=== PATIENT | female | born 1970 | race Caucasian/White ===

== ENCOUNTER 2016-06-15 21:27 | Emergency (ER) | payer OTHER ==
[2016-06-15 21:41] VITALS: TEMP 97.6
--- NOTE | 2016-06-15 22:32 | ED ---
Skin/Abscess/FB HPI - General Chief complaint: Skin/Abscess/Foreign Body Stated complaint: cysts Time Seen by Provider: 06/15/16 21:48 Source: patient, RN notes reviewed, old records reviewed Mode of arrival: ambulatory Limitations: no limitations - History of Present Illness Initial comments: Trina is a 45 year old female with chief complaint of left axilla avscess. She has had these before due to shaving with a poor razor. PAteint states she went to [facility] 2 weeks ago, and had it drained. She did remove the packing, patient states that they put her on bactrim but she didnt take the medication because she is allergic to it. Patient states she siddiqi had no oral antibiotiv and it has became worse. Denies fever and chills, chest pain, shortness of breath, nausea, vomiting. - Related Data Home Medications Medication Instructions Recorded Confirmed Albuterol Inhaler [Ventolin Hfa 2 puff INHALATION RT-Q6H PRN 06/15/16 06/15/16 Inhaler] Previous Rx's Medication Instructions Recorded Acetaminophen-Codeine 300-30mg 1 tab PO Q4H PRN #15 tablet 06/15/16 [Tylenol #3] Cephalexin [Keflex] 500 mg PO Q8HR #21 cap 06/15/16 Allergies Allergy/AdvReac Type Severity Reaction Status Date / Time erythromycin base Allergy Rash/Hives Verified 06/15/16 21:50 [Erythromycin Base] Macrolide Antibiotics Allergy Unknown Verified 06/15/16 21:50 penicillin G Allergy Unknown Verified 06/15/16 21:50 sulfamethoxazole Allergy Rash/Hives Verified 06/15/16 21:50 [From Bactrim] trimethoprim [From Bactrim] Allergy Rash/Hives Verified 06/15/16 21:50 blood thinners AdvReac Unknown Uncoded 10/03/15 22:11 TAPE AdvReac WRIPS OFF Uncoded 06/15/16 21:50 SKIN Review of Systems ROS Statement: Those systems with pertinent positive or pertinent negative responses have been documented in the HPI. ROS Other: All systems not noted in ROS Statement are negative. Past Medical History Past Medical History: Asthma, Cancer Additional Past Medical History / Comment(s): POST MENOPAUSAL CERVICAL CANCER History of Any Multi-Drug Resistant Organisms: None Reported Past Surgical History: Tubal Ligation Additional Past Surgical History / Comment(s): COLONOSCOPY EGD, CC implants Past Anesthesia/Blood Transfusion Reactions: No Reported Reaction Past Psychological History: Anxiety, Depression Smoking Status: Former smoker Past Alcohol Use History: None Reported Past Drug Use History: None Reported General Exam - General Exam Comments Initial Comments: Well appearing 45 year old male, no distress. Limitations: no limitations General appearance: alert, in no apparent distress Head exam: Present: atraumatic, normocephalic, normal inspection Eye exam: Present: normal appearance, PERRL, EOMI. Absent: scleral icterus, conjunctival injection, periorbital swelling ENT exam: Present: normal exam, mucous membranes moist Neck exam: Present: normal inspection. Absent: tenderness, meningismus, lymphadenopathy Respiratory exam: Present: normal lung sounds bilaterally. Absent: respiratory distress, wheezes, rales, rhonchi, stridor Cardiovascular Exam: Present: regular rate, normal rhythm, normal heart sounds. Absent: systolic murmur, diastolic murmur, rubs, gallop, clicks GI/Abdominal exam: Present: soft, normal bowel sounds. Absent: distended, tenderness, guarding, rebound, rigid Extremities exam: Present: normal inspection, full ROM, normal capillary refill. Absent: tenderness, pedal edema, joint swelling, calf tenderness Back exam: Present: normal inspection Neurological exam: Present: alert, oriented X3, CN II-XII intact Psychiatric exam: Present: normal affect, normal mood Skin exam: Present: warm, dry, intact, normal color, erythema (left axilla abscess.). Absent: rash Course Vital Signs 06/15/16 06/16/16 21:37 00:02 Temperature 97.6 F 97.6 F Pulse Rate 71 74 Respiratory 20 16 Rate Blood Pressure 166/81 169/89 O2 Sat by Pulse 100 98 Oximetry Procedures - Incision & Drainage Consent Obtained: verbal consent Indication: abscess Site: upper extremity (left axilla) Size (cm): 2 Anesthetic Used: benzocaine 0.25% Amount (mLs): 10 I&D Cleaning Method: Iodine Sterile Field Used?: Yes Scalpel Used: #11 I&D Drainage Obtained: Pus, Blood Culture Obtained?: Yes Patient Tolerated Procedure: well, no complications Medical Decision Making - Medical Decision Making Patient is a 45 year old with left axilla abscess. Incision and drainage preformed, culture obtained, able to remove puss. Patient started on keflex, as she has had that before for these absecess. Discussed follow up with PCP and removal of packing in 2 days. Patient agrees with treatment plan and will cmply. Disposition Clinical Impression: Abscess of left axilla Disposition: HOME SELF-CARE Condition: Good Instructions: Abscess Incision and Drainage (ED) Additional Instructions: Keep packing in until it needs to be removed in approximately 2 days. Completely entire antibiotic prescription. Follow-up with primary care provider. Return to emergency Department if any worsening signs or symptoms occur. Prescriptions: Acetaminophen-Codeine 300-30mg [Tylenol #3] 1 tab PO Q4H PRN #15 tablet PRN Reason: Pain Cephalexin [Keflex] 500 mg PO Q8HR #21 cap Referrals: Lima Oakes MD [Primary Care Provider] - 1-2 days Time of Disposition: 22:30
[2016-06-15] MEDS ORDERED: CEPHALEXIN 500MG STARTER PACK 4 CAP BTL PO STA (23:07)
[2016-06-16] MEDS ORDERED: ACET/COD 300 MG/30 MG STARTER PACK 6 TAB BTL PO STA (00:01)
[2016-06-16 00:05] VITALS: BP 169/89; PULSE 74; RESP 16
== END 2016-06-16 00:13 | disposition home or self-care (01) ==
LOC: EC 21:27
DX: L02.412 Cutaneous abscess of left axilla (principal); Z87.891 Personal history of nicotine dependence; Z85.41 Personal history of malignant neoplasm of cervix uteri; Z88.1 Allergy status to other antibiotic agents; Z88.0 Allergy status to penicillin; Z88.5 Allergy status to narcotic agent; Z88.8 Allergy status to other drugs, medicaments and biological substances; Z91.048 Other nonmedicinal substance allergy status
CPT/HCPCS: 10060; 87070; 87077; 87186; 87205; 99283

== ENCOUNTER 2016-11-23 | Emergency (ER) | payer OTHER ==
--- NOTE | 2016-11-23 20:51 | ED ---
General Adult HPI - General Chief complaint: ENT Stated complaint: Sore Throat/Fatigue Time Seen by Provider: 11/23/16 20:33 Source: patient, family Mode of arrival: ambulatory Limitations: no limitations - History of Present Illness Initial comments: 46-year-old female patient presents to emergency department today for complaints of nasal drainage and sore throat. Patient states that symptoms started 4 days ago. States she has been sleeping a little more than usual. She states that she has had a slight cough. She denies any green or area nasal discharge. She denies any sputum production. She denies any shortness of breath or wheezing. She denies any sick contacts. Denies any known fever. Patient denies any recent rash, shortness breath, chest pain, abdominal pain, nausea, vomiting, diarrhea, constipation, back pain, numbness, tingling, dizziness, weakness, hematuria, dysuria, urinary urgency, urinary frequency, headache, visual changes, or any other complaints. - Related Data Home Medications Medication Instructions Recorded Confirmed Albuterol Inhaler [Ventolin Hfa 2 puff INHALATION RT-Q6H PRN 06/15/16 11/23/16 Inhaler] Albuterol Nebulized [Ventolin 2.5 mg INHALATION RT-Q6H PRN 11/23/16 11/23/16 Nebulized] DULoxetine HCL [Cymbalta] 60 mg PO DAILY 11/23/16 11/23/16 Allergies Allergy/AdvReac Type Severity Reaction Status Date / Time erythromycin base Allergy Rash/Hives Verified 11/23/16 20:56 [Erythromycin Base] Macrolide Antibiotics Allergy Rash/Hives Verified 11/23/16 20:56 sulfamethoxazole Allergy Rash/Hives Verified 11/23/16 20:56 [From Bactrim] trimethoprim [From Bactrim] Allergy Rash/Hives Verified 11/23/16 20:56 adhesive tape AdvReac Peels Skin Verified 11/23/16 20:56 penicillin G AdvReac Yeast Verified 11/23/16 20:56 Infection blood thinners AdvReac Unknown Uncoded 11/23/16 20:14 Review of Systems ROS Statement: Those systems with pertinent positive or pertinent negative responses have been documented in the HPI. ROS Other: All systems not noted in ROS Statement are negative. Past Medical History Past Medical History: Asthma, Cancer Additional Past Medical History / Comment(s): POST MENOPAUSAL CERVICAL CANCER History of Any Multi-Drug Resistant Organisms: None Reported Past Surgical History: Tubal Ligation Additional Past Surgical History / Comment(s): COLONOSCOPY EGD, CC implants Past Anesthesia/Blood Transfusion Reactions: No Reported Reaction Past Psychological History: Anxiety, Depression Smoking Status: Former smoker Past Alcohol Use History: None Reported Past Drug Use History: None Reported General Exam Limitations: no limitations General appearance: alert, in no apparent distress, other (This is a well- developed, well-nourished adult female patient of acute distress. Vital signs upon presentation her temperature 97.3F, pulse 87, respirations 18, blood pressure 150/93, pulse ox 99% on room air.) Eye exam: Present: normal appearance, PERRL, EOMI. Absent: scleral icterus, conjunctival injection, periorbital swelling ENT exam: Present: normal exam, mucous membranes moist, TM's normal bilaterally. Absent: normal oropharynx (Oropharyngeal erythema, no swelling, no tonsillar exudate.) Neck exam: Present: normal inspection. Absent: tenderness, meningismus, lymphadenopathy Respiratory exam: Present: normal lung sounds bilaterally. Absent: respiratory distress, wheezes, rales, rhonchi, stridor Cardiovascular Exam: Present: regular rate, normal rhythm, normal heart sounds. Absent: systolic murmur, diastolic murmur, rubs, gallop, clicks GI/Abdominal exam: Present: soft, normal bowel sounds. Absent: distended, tenderness, guarding, rebound, rigid Neurological exam: Present: alert, oriented X3, CN II-XII intact Psychiatric exam: Present: normal affect, normal mood Skin exam: Present: warm, dry, intact, normal color. Absent: rash Course Vital Signs 11/23/16 20:08 Temperature 97.3 F L Pulse Rate 87 Respiratory 18 Rate Blood Pressure 150/93 O2 Sat by Pulse 99 Oximetry Medical Decision Making - Medical Decision Making 46 year-old female patient presented to emergency department today for evaluation of upper respiratory symptoms. Symptoms has been present for 4 days. She states they are mildly improved today however she has been sleeping more than usual so is concerned. Physical examination was unremarkable, lungs clear to auscultation, mildly erythematous throat, no lymphadenopathy, no tonsillar exudate. Symptoms are consistent with viral upper respiratory infection. She is instructed to use [id number] nasal decongestants and cough and cold medication. She is instructed to return here immediately should her symptoms change or worsen in any way. She is instructed to follow-up with her primary care physician for recheck in one to days. She verbalizes understanding and agrees with this plan. Disposition Clinical Impression: Upper respiratory infection Disposition: HOME SELF-CARE Condition: Good Instructions: Upper Respiratory Infection (ED) Additional Instructions: Increase fluids. Rest. Take [id number] nasal decongestants and cough medications for symptom relief. Follow-up with her primary care physician for recheck in 1-2 days. Return here immediately for any new, worsening, or concerning symptoms. Referrals: Lima Oakes MD [Primary Care Provider] - 1-2 days Time of Disposition: 20:51
== END 2016-11-23 21:01 | disposition home or self-care (01) ==
CPT/HCPCS: 99282

== ENCOUNTER → 2017-02-12 | Outpatient (CLI) | payer OTHER ==
[2017-02-12 17:41] LABS: Basophils % (A) 1 %; CH 28.1; Eosinophils # (A) 0.1 k/uL (0-0.7); Eosinophils % (A) 4 %; HDW 2.66; HGB 13.7 gm/dL (11.4-16.0); Hypochromasia Slight; Luc # (Auto) 0.07; Luc % (Auto) 2; Lymphocytes # (A) 1.1 k/uL (1.0-4.8); Lymphocytes % (A) 31 %; MCH 27.8 pg (25.0-35.0); MCHC 30.5 g/dL (31.0-37.0); MCV 91.2 fL (80.0-100.0); Mean Platelet Volume 8.1; Monocytes # (A) 0.2 k/uL (0-1.0); Monocytes % (A) 6 %; Neutrophils # (A) 1.9 k/uL (1.3-7.7); Neutrophils % (A) 55 %; RBC 4.94 m/uL (3.80-5.40); RDW 14.7 % (11.5-15.5); WBC 3.5 k/uL (3.8-10.6); WBC (Perox) 3.64
[2017-02-12 18:12] LABS: ALT 33 U/L (9-52); AST 21 U/L (14-36); Alkaline Phosphatase 76 U/L (38-126); Anion Gap 8 mmol/L; Blood Urea Nitrogen 13 mg/dL (7-17); Calcium 9.6 mg/dL (8.4-10.2); Carbon Dioxide 27 mmol/L (22-30); Chloride 105 mmol/L (98-107); Glucose 93 mg/dL (74-99); Non-African American GFR(MDRD) >60 (>60 ml/min/1.73 sqM); Potassium 4.1 mmol/L (3.5-5.1); Sodium 140 mmol/L (137-145); Total Bilirubin 0.8 mg/dL (0.2-1.3); Total Protein 6.5 g/dL (6.3-8.2)
== END | disposition home or self-care (01) ==
LOC: LABWHC1 17:04
PROVIDERS: ATTEND Nurse Practitioner Acute Care
DX: G62.9 Polyneuropathy, unspecified (principal); E55.9 Vitamin D deficiency, unspecified; R53.83 Other fatigue
CPT/HCPCS: 36415; 80053; 82306; 82607; 84207; 84439; 84443; 84481; 85025

== ENCOUNTER 2017-07-19 15:52 | Observation (INO) | payer OTHER ==
[2017-07-19] MEDS ORDERED: SODIUM CHLORIDE 0.9% 500 ML IV STA (16:07)
--- NOTE | 2017-07-19 16:14 | ED ---
General Adult HPI - General Chief complaint: Chest Pain Stated complaint: CHest Pain Time Seen by Provider: 07/19/17 16:00 Source: patient, EMS, RN notes reviewed, old records reviewed Mode of arrival: EMS Limitations: no limitations - History of Present Illness Initial comments: 46-year-old female presents for evaluation of left-sided chest pain. Patient states the pain began when she was out for a walk. She did feel lightheaded and sweaty with this episode. Pain is resolving with rest. She was given aspirin and nitroglycerin by EMS. She has no history of CAD. She has past medical history of asthma and depression. She does have a family history of coronary artery disease. The pain at the time my evaluation was significantly improved. She describes it as a squeezing tightness in her left side of her chest. No radiating symptoms. No vomiting. Mild dyspnea. No abdominal pain. No calf pain or lower extremity swelling. - Related Data Home Medications Medication Instructions Recorded Confirmed Albuterol Inhaler [Ventolin Hfa 2 puff INHALATION RT-Q6H PRN 06/15/16 11/23/16 Inhaler] Albuterol Nebulized [Ventolin 2.5 mg INHALATION RT-Q6H PRN 11/23/16 11/23/16 Nebulized] DULoxetine HCL [Cymbalta] 60 mg PO DAILY 11/23/16 11/23/16 Allergies Allergy/AdvReac Type Severity Reaction Status Date / Time erythromycin base Allergy Rash/Hives Verified 07/19/17 17:41 [Erythromycin Base] Macrolide Antibiotics Allergy Rash/Hives Verified 07/19/17 17:41 sulfamethoxazole Allergy Rash/Hives Verified 07/19/17 17:41 [From Bactrim] trimethoprim [From Bactrim] Allergy Rash/Hives Verified 07/19/17 17:41 adhesive tape AdvReac Peels Skin Verified 07/19/17 17:41 penicillin G AdvReac Yeast Verified 07/19/17 17:41 Infection blood thinners AdvReac Unknown Uncoded 11/23/16 20:14 Review of Systems ROS Statement: Those systems with pertinent positive or pertinent negative responses have been documented in the HPI. ROS Other: All systems not noted in ROS Statement are negative. Past Medical History Past Medical History: Asthma, Cancer Additional Past Medical History / Comment(s): POST MENOPAUSAL CERVICAL CANCER History of Any Multi-Drug Resistant Organisms: None Reported Past Surgical History: Tubal Ligation Additional Past Surgical History / Comment(s): COLONOSCOPY EGD, CC implants Past Anesthesia/Blood Transfusion Reactions: No Reported Reaction Past Psychological History: Anxiety, Depression Smoking Status: Former smoker Past Alcohol Use History: None Reported Past Drug Use History: None Reported General Exam Limitations: no limitations General appearance: alert, in no apparent distress Head exam: Present: atraumatic, normocephalic Eye exam: Present: normal appearance, PERRL ENT exam: Present: normal exam. Absent: normal oropharynx, mucous membranes dry Neck exam: Present: normal inspection. Absent: tenderness, meningismus Respiratory exam: Present: normal lung sounds bilaterally. Absent: respiratory distress, wheezes Cardiovascular Exam: Present: regular rate, normal rhythm Extremities exam: Present: normal inspection, full ROM, normal capillary refill. Absent: pedal edema, calf tenderness Back exam: Present: normal inspection Neurological exam: Present: alert, oriented X3, CN II-XII intact. Absent: motor sensory deficit Psychiatric exam: Present: normal affect, normal mood Skin exam: Present: warm, dry, intact. Absent: cyanosis, diaphoretic Course Vital Signs 07/19/17 07/19/17 07/19/17 16:00 16:18 16:44 Temperature 98.4 F Pulse Rate 63 69 Pulse Rate [ 65 Sitting Apical] Respiratory 19 19 Rate Blood Pressure 190/76 133/65 O2 Sat by Pulse 98 98 Oximetry EKG Findings - EKG Comments: EKG Findings:: EKG sinus bradycardia, left axis deviation, rate of 59, GA interval 140, QRS duration 86, QTC [address] segment elevation or depression Medical Decision Making - Medical Decision Making 46-year-old female presenting with chief complaint of squeezing left-sided chest tightness. EKG does not show any definitive signs of ischemia. Workup reveals mild leukopenia at 2.2, hemoglobin stable at 13.8. D-dimer is negative. Electrolytes normal limits. Initial troponin is negative. Chest x- ray negative for acute process. Patient will be placed in observation for repeat cardiac enzymes as her symptoms began just prior to arrival. Cardiology placed on consult. Case discussed with Dr. Harden who will accept admission - Lab Data Result diagrams: 07/19/17 14:11 07/19/17 14:11 Lab Results 07/19/17 07/19/17 07/19/17 Range/Units 14:11 14:11 14:11 WBC 2.9 L (3.8-10.6) k/uL RBC 4.85 (3.80-5.40) m/uL Hgb 13.8 (11.4-16.0) gm/dL Hct 41.8 (34.0-46.0) % MCV 86.3 (80.0-100.0) fL MCH 28.4 (25.0-35.0) pg MCHC 32.9 (31.0-37.0) g/dL RDW 13.7 (11.5-15.5) % Plt Count 112 L (150-450) k/uL Neutrophils % 55 % Lymphocytes % 34 % Monocytes % 6 % Eosinophils % 3 % Basophils % 1 % Neutrophils # 1.6 (1.3-7.7) k/uL Lymphocytes # 1.0 (1.0-4.8) k/uL Monocytes # 0.2 (0-1.0) k/uL Eosinophils # 0.1 (0-0.7) k/uL Basophils # 0.0 (0-0.2) k/uL PT 10.0 (9.0-12.0) sec INR 1.0 (<1.2) APTT 22.5 (22.0-30.0) sec D-Dimer 0.46 (<0.60) mg/L FEU Sodium (137-145) mmol/L Potassium (3.5-5.1) mmol/L Chloride (98-107) mmol/L Carbon Dioxide (22-30) mmol/L Anion Gap mmol/L BUN (7-17) mg/dL Creatinine (0.52-1.04) mg/dL Est GFR (CKD-EPI)AfAm (>60 ml/min/1.73 sqM) Est GFR (CKD-EPI)NonAf (>60 ml/min/1.73 sqM) Glucose (74-99) mg/dL Calcium (8.4-10.2) mg/dL Magnesium (1.6-2.3) mg/dL Total Bilirubin (0.2-1.3) mg/dL AST (14-36) U/L ALT (9-52) U/L Alkaline Phosphatase (38-126) U/L Total Creatine Kinase 44 (30-135) U/L CK-MB (CK-2) <0.2 (0.0-2.4) ng/mL CK-MB (CK-2) Rel Index Troponin I <0.012 (0.000-0.034) ng/mL NT-Pro-B Natriuret Pep pg/mL Total Protein (6.3-8.2) g/dL Albumin (3.5-5.0) g/dL Lipase (23-300) U/L 07/19/17 07/19/17 Range/Units 14:11 14:11 WBC (3.8-10.6) k/uL RBC (3.80-5.40) m/uL Hgb (11.4-16.0) gm/dL Hct (34.0-46.0) % MCV (80.0-100.0) fL MCH (25.0-35.0) pg MCHC (31.0-37.0) g/dL RDW (11.5-15.5) % Plt Count (150-450) k/uL Neutrophils % % Lymphocytes % % Monocytes % % Eosinophils % % Basophils % % Neutrophils # (1.3-7.7) k/uL Lymphocytes # (1.0-4.8) k/uL Monocytes # (0-1.0) k/uL Eosinophils # (0-0.7) k/uL Basophils # (0-0.2) k/uL PT (9.0-12.0) sec INR (<1.2) APTT (22.0-30.0) sec D-Dimer (<0.60) mg/L FEU Sodium 145 (137-145) mmol/L Potassium 4.1 (3.5-5.1) mmol/L Chloride 110 H (98-107) mmol/L Carbon Dioxide 22 (22-30) mmol/L Anion Gap 13 mmol/L BUN 13 (7-17) mg/dL Creatinine 0.80 (0.52-1.04) mg/dL Est GFR (CKD-EPI)AfAm >90 (>60 ml/min/1.73 sqM) Est GFR (CKD-EPI)NonAf 88 (>60 ml/min/1.73 sqM) Glucose 84 (74-99) mg/dL Calcium 9.6 (8.4-10.2) mg/dL Magnesium 2.0 (1.6-2.3) mg/dL Total Bilirubin 0.7 (0.2-1.3) mg/dL AST 22 (14-36) U/L ALT 27 (9-52) U/L Alkaline Phosphatase 67 (38-126) U/L Total Creatine Kinase (30-135) U/L CK-MB (CK-2) (0.0-2.4) ng/mL CK-MB (CK-2) Rel Index Troponin I (0.000-0.034) ng/mL NT-Pro-B Natriuret Pep 125 pg/mL Total Protein 6.6 (6.3-8.2) g/dL Albumin 4.0 (3.5-5.0) g/dL Lipase 66 (23-300) U/L Disposition Clinical Impression: Chest pain Disposition: ADMITTED IP TO THIS [facility] Condition: Stable Referrals: Lima Oakes MD [Primary Care Provider] - 1-2 days Decision to Admit Reason: Admit from EC Decision Date: 07/19/17 Decision Time: 17:45
[2017-07-19 16:25] LABS: Basophils % (A) 1 %; Eosinophils # (A) 0.1 k/uL (0-0.7); Eosinophils % (A) 3 %; HCT 41.8 % (34.0-46.0); HGB 13.8 gm/dL (11.4-16.0); Lymphocytes % (A) 34 %; MCH 28.4 pg (25.0-35.0); MCHC 32.9 g/dL (31.0-37.0); MCV 86.3 fL (80.0-100.0); Mean Platelet Volume 8.1; Monocytes # (A) 0.2 k/uL (0-1.0); Monocytes % (A) 6 %; Neutrophils # (A) 1.6 k/uL (1.3-7.7); Neutrophils % (A) 55 %; Platelet Count 112 k/uL (150-450); RBC 4.85 m/uL (3.80-5.40); RDW 13.7 % (11.5-15.5); WBC 2.9 k/uL (3.8-10.6)
[2017-07-19 16:34] LABS: ALT 27 U/L (9-52); AST 22 U/L (14-36); Alkaline Phosphatase 67 U/L (38-126); Anion Gap 13 mmol/L; Blood Urea Nitrogen 13 mg/dL (7-17); Calcium 9.6 mg/dL (8.4-10.2); Carbon Dioxide 22 mmol/L (22-30); Chloride 110 mmol/L (98-107); Glucose 84 mg/dL (74-99); Lipase 66 U/L (23-300); Potassium 4.1 mmol/L (3.5-5.1); Sodium 145 mmol/L (137-145); Total Bilirubin 0.7 mg/dL (0.2-1.3); Total Protein 6.6 g/dL (6.3-8.2)
[2017-07-19 16:42] LABS: Creatine Kinase 44 U/L (30-135)
--- NOTE | 2017-07-19 16:45 | XR ---
EXAMINATION TYPE: XR chest 2V DATE OF EXAM: 07/19/2017 COMPARISON: 08/19/2015 INDICATION: Chest pain TECHNIQUE: Frontal and lateral views of the chest are obtained. FINDINGS: The heart size is normal. The pulmonary vasculature is normal. The lungs are clear. IMPRESSION: 1. No acute pulmonary process.
[2017-07-19 16:51] LABS: D-Dimer 0.46 mg/L FEU (<0.60); Partial Thromboplastin Time 22.5 sec (22.0-30.0)
[2017-07-19 16:55] LABS: Creatine Kinase MB <0.2 ng/mL (0.0-2.4); Troponin I <0.012 ng/mL (0.000-0.034)
[2017-07-19] MEDS ORDERED: NALOXONE 0.4 MG/ML 1 ML VIAL IV PRN (17:41)
[2017-07-19] MEDS ORDERED: NITROGLYCERIN SL TABS 0.4 MG TAB SUBLINGUAL PRN (17:43)
[2017-07-19] MEDS ORDERED: ALPRAZolam 0.25 MG TAB PO PRN (18:22)
[2017-07-19] MEDS ORDERED: TEMAZEPAM 15 MG CAP PO PRN (18:22)
[2017-07-19] MEDS ORDERED: ACETAMINOPHEN TAB 500 MG TAB PO PRN (18:22)
[2017-07-19 20:27] VITALS: BMI 49.1
[2017-07-19 20:44] LABS: Creatine Kinase MB 0.2 ng/mL (0.0-2.4)
[2017-07-19] MEDS ORDERED: tiZANidine 4 MG TAB PO SCH (21:00)
--- NOTE | 2017-07-19 22:26 | HP ---
HISTORY AND PHYSICAL DATE OF SERVICE: 07/19/2017 CHIEF COMPLAINT: Chest pain. HISTORY OF PRESENT ILLNESS: This 46-year-old woman with a past medical history of multiple medical problems, asthma, history of cervical cancer, history of tubal ligation and depression being followed by Dr. Lima Oakes, complains of chest pain. The pain is mostly to the left side and mid part of the chest, increasing in character. The pain began when the patient was walking and the nitroglycerin. The patient was admitted for further evaluation and treatment. There is no history of fever, rigors. No headache, loss of consciousness, seizures. PAST MEDICAL HISTORY: History of anxiety, depression, asthma, history of cervical cancer. MEDICATIONS: Prior to admission home medications are Zanaflex 4 mg p.o. b.i.d. and Cymbalta 60 mg p.o. daily. ALLERGIES: ERYTHROMYCIN, SULFAMETHOXAZOLE, ADHESIVE TAPE AND BLOOD THINNERS. FAMILY HISTORY: No history of heart disease or strokes in family. SOCIAL HISTORY: History of smoking. No history of current smoking or alcohol intake. REVIEW OF SYSTEMS: ENT: No diminished hearing or vision. CARDIOVASCULAR: As mentioned earlier. GI: No nausea. : No dysuria. NERVOUS SYSTEM: No numbness or weakness. ALLERGY/IMMUNOLOGY: As mentioned earlier. HEMATOLOGY/ONCOLOGY: No history of anemia. ENDOCRINE: No history of diabetes or hyperthyroidism. CONSTITUTIONAL: As mentioned earlier. PHYSICAL EXAMINATION: Alert and oriented x3. Pulse is 69, blood pressure 130/60 respirations 19, temperature 98.4, pulse ox 98% on 2 L HEENT is conjunctivae normal. Oral mucosa moist. NECK: No jugular venous distention. No lymph nodes palpable. CARDIOVASCULAR: S1, S2. RESPIRATORY: Diminished breath sounds at the bases. No rhonchi, no crackles. ABDOMEN: Soft, nontender. No mass palpable. LEGS: No edema, no swelling. NERVOUS SYSTEM: Higher functions as mentioned earlier. Moves all four limbs. LYMPHATICS: No lymph in the neck or axilla. SKIN: No ulcer, rash or bleeding. LABS: WBC 2.9, hemoglobin 13.8, platelets 130. ASSESSMENT: 1. Chest pain, possible unstable angina. 2. Mild leukopenia. 3. Mild thrombocytopenia. 4. History of asthma. 5. History of cervical cancer. 6. Anxiety and depression. RECOMMENDATIONS AND DISCUSSION: This is a 46-year-old woman who presented with multiple complex medical issues. We will monitor the patient closely, continue the current management, continue symptomatic treatment. Otherwise, at this time I recommend protocol and rule out myocardial infarction, cardiology consultation and resume home medications. Prognosis guarded because of multiple complex medical issues. Further recommendations to follow. MMLEBRONL / PAPIN: [id number] / MTDD
[2017-07-20 02:25] LABS: Creatine Kinase 51 U/L (30-135)
[2017-07-20 02:35] LABS: Creatine Kinase MB 0.3 ng/mL (0.0-2.4)
[2017-07-20 03:50] LABS: Basophils % (A) 1 %; Eosinophils # (A) 0.2 k/uL (0-0.7); Eosinophils % (A) 5 %; HCT 39.3 % (34.0-46.0); HGB 12.9 gm/dL (11.4-16.0); Lymphocytes # (A) 1.3 k/uL (1.0-4.8); Lymphocytes % (A) 37 %; MCH 28.7 pg (25.0-35.0); MCHC 32.9 g/dL (31.0-37.0); MCV 87.3 fL (80.0-100.0); Mean Platelet Volume 8.3; Monocytes # (A) 0.2 k/uL (0-1.0); Monocytes % (A) 5 %; Neutrophils # (A) 1.8 k/uL (1.3-7.7); Neutrophils % (A) 51 %; Platelet Count 110 k/uL (150-450); RDW 13.7 % (11.5-15.5); WBC 3.5 k/uL (3.8-10.6)
[2017-07-20 04:11] LABS: Anion Gap 10 mmol/L; Blood Urea Nitrogen 13 mg/dL (7-17); Calcium 9.2 mg/dL (8.4-10.2); Carbon Dioxide 23 mmol/L (22-30); Chloride 110 mmol/L (98-107); Glucose 87 mg/dL (74-99); Potassium 4.2 mmol/L (3.5-5.1); Sodium 143 mmol/L (137-145)
[2017-07-20 04:22] LABS: Troponin I <0.012 ng/mL (0.000-0.034)
[2017-07-20 08:31] VITALS: RESP 16
[2017-07-20] MEDS ORDERED: DULoxetine HCL 60 MG CAPSULE.DR PO SCH ×2 (09:00→21:00)
[2017-07-20] MEDS ORDERED: ASPIRIN 81 MG PO SCH ×2 (09:15→11:15)
[2017-07-20] MEDS ORDERED: METOPROLOL TARTRATE 12.5 MG TAB PO SCH ×2 (09:15→11:15)
[2017-07-20 11:19] VITALS: BP 138/66; PULSE 57; TEMP 97.9
[2017-07-20] MEDS ORDERED: tiZANidine 4 MG TAB PO SCH (21:00)
--- NOTE | 2017-07-20 22:06 | CONS ---
CONSULTATION Sonia Kinney is a 46-year-old woman who has been admitted to the hospital when she presented with a left-sided chest pain. Pain began when she went for a walk. She felt lightheaded and had some sweaty feeling. She was given aspirin and nitroglycerin by EMS without any relief. She has past medical history in the form of bronchial asthma and some depression. This pain occurred with her walk, but subsequently she has no further pain. She is resting comfortably without symptoms. She is otherwise a reasonably active person. PAST MEDICAL HISTORY: Remarkable for some bronchial asthma, anxiety, some depression, and also history of cervical cancer for which she received chemotherapy with a port. MEDICATIONS: At home include Cymbalta. ALLERGIES: SULFA and ERYTHROMYCIN. EXAMINATION: Blood pressure is 130/70, pulse rate is 70 per minute, regular. HEENT: Unremarkable. Fundus was not examined by me. NECK: Supple. There is no JVD. I do not hear a carotid bruit. Heart exam reveals S1, S2 heard normally without a rub, murmur or gallop. Lungs are clear. Abdomen is soft, nontender. Lower extremities reveal normal pulses. No edema. Central nervous system is normal. EKG revealed sinus mechanism, leftward axis, no acute changes. LABORATORY DATA: Revealed that her troponins are normal and all electrolytes are normal. BNP is normal. Chest x-ray revealed no significant abnormalities. IMPRESSION: 1. Atypical chest pain. 2. History of cervical cancer. 3. Family history of coronary artery disease. RECOMMENDATION: I am recommending that we will start her on aspirin 81 mg daily and Lopressor 12.5 mg b.i.d. We will increase activity and if she has no further symptoms she can be discharged and I will perform stress testing as an outpatient. I discussed my thoughts in detail with the patient. Thank you very much for the consult. MMODL / IJN: [id number] /
--- NOTE | 2017-07-21 06:43 | DS ---
DISCHARGE SUMMARY DATE OF SERVICE: 07/20/2017 FINAL DIAGNOSES: 1. Chest pain, myocardial infarction ruled out. 2. Mild leukopenia. 3. Mild thrombocytopenia. 4. History of asthma. 5. History of cervical cancer. 6. Anxiety and depression. DISCHARGE DISPOSITION: The patient will be discharged in stable condition with guarded prognosis. Cardiology cleared the patient. HISTORY OF PRESENT ILLNESS: This 46-year-old woman with a past medical history of multiple medical problems admitted with chest pain. Myocardial infarction ruled out. Cardiology saw the patient. Recommend outpatient followup. The patient follows with Dr. Lima Oakes in the outpatient setting. On exam, vital signs are stable. CARDIOVASCULAR: S1 and S2 muffled. ABDOMEN: Soft. NERVOUS SYSTEM: No focal deficits. DISCHARGE ADVICE: 1. Diet is cardiac. 2. Activity limited until followup. 3. Follow up with Dr. Clarence Samuel as advised. 4. Follow up with Dr. Lima Oakes as advised. MEDICATIONS: 1. Aspirin 81 mg p.o. daily. 2. Cymbalta 60 mg at bedtime. 3. Lopressor 12.5 mg b.i.d. 4. Zanaflex 4 mg at bedtime. Once again, the patient will be discharged in a stable condition with a guarded prognosis. MMODL / IJN: [id number] /
== END 2017-07-20 12:47 | disposition home or self-care (01) ==
LOC: EC 15:52 → 6SEL 17:42 → 3OBS 07-20 10:39
PROVIDERS: ADMIT Hospitalist; ATTEND Hospitalist
DX: R07.89 Other chest pain (principal); R42 Dizziness and giddiness; R61 Generalized hyperhidrosis; D72.819 Decreased white blood cell count, unspecified; D69.6 Thrombocytopenia, unspecified; J45.909 Unspecified asthma, uncomplicated; F32.9 Major depressive disorder, single episode, unspecified; F41.9 Anxiety disorder, unspecified; Z85.41 Personal history of malignant neoplasm of cervix uteri; Z79.899 Other long term (current) drug therapy; Z87.891 Personal history of nicotine dependence; Z92.21 Personal history of antineoplastic chemotherapy; Z82.49 Family history of ischemic heart disease and other diseases of the circulatory system; Z88.2 Allergy status to sulfonamides; Z88.0 Allergy status to penicillin; Z88.1 Allergy status to other antibiotic agents; Z91.048 Other nonmedicinal substance allergy status
CPT/HCPCS: 99285; 36415; 93005; 85379; 83880; 80053; 80048; 82550 ×2; 82553 ×2; 83690; 83735; 84484 ×2; 85025 ×2; 85610; 85730; 71046; G0378 ×2

== ENCOUNTER 2017-08-31 03:54 | Emergency (ER) | payer OTHER ==
[2017-08-31] MEDS ORDERED: SODIUM CHLORIDE 0.9% 1,000 ML IV STA (04:05)
[2017-08-31] MEDS ORDERED: SODIUM CHLORIDE 0.9% 500 ML IV STA (04:05)
[2017-08-31 04:23] LABS: Basophils % (A) 0 %; Eosinophils # (A) 0.2 k/uL (0-0.7); Eosinophils % (A) 5 %; HCT 44.6 % (34.0-46.0); HGB 14.3 gm/dL (11.4-16.0); Hypochromasia Slight; Lymphocytes # (A) 1.8 k/uL (1.0-4.8); Lymphocytes % (A) 36 %; MCH 28.2 pg (25.0-35.0); MCHC 32.1 g/dL (31.0-37.0); Mean Platelet Volume 8.1; Monocytes # (A) 0.3 k/uL (0-1.0); Monocytes % (A) 5 %; Neutrophils # (A) 2.6 k/uL (1.3-7.7); Neutrophils % (A) 52 %; Platelet Count 117 k/uL (150-450); RBC 5.06 m/uL (3.80-5.40); RDW 13.6 % (11.5-15.5)
[2017-08-31 04:33] LABS: Albumin 4.4 g/dL (3.5-5.0); Anion Gap 11 mmol/L; Calcium 9.6 mg/dL (8.4-10.2); Carbon Dioxide 25 mmol/L (22-30); Chloride 108 mmol/L (98-107); Glucose 85 mg/dL (74-99); Lipase 99 U/L (23-300); Sodium 144 mmol/L (137-145); Total Bilirubin 0.6 mg/dL (0.2-1.3); Total Protein 7.1 g/dL (6.3-8.2)
[2017-08-31 04:34] LABS: Blood Urea Nitrogen 13 mg/dL (7-17)
[2017-08-31 04:35] LABS: ALT 27 U/L (9-52); AST 28 U/L (14-36); Alkaline Phosphatase 79 U/L (38-126); Magnesium 2.2 mg/dL (1.6-2.3)
[2017-08-31 04:43] LABS: Creatine Kinase 55 U/L (30-135); D-Dimer 0.57 mg/L FEU (<0.60); Prothrombin Time 9.6 sec (9.0-12.0)
[2017-08-31 04:56] LABS: Creatine Kinase MB 0.4 ng/mL (0.0-2.4); Troponin I <0.012 ng/mL (0.000-0.034)
--- NOTE | 2017-08-31 05:24 | ED ---
General Adult HPI - General Chief complaint: Chest Pain Stated complaint: Chest Pain Time Seen by Provider: 08/31/17 04:05 Source: patient, RN notes reviewed, old records reviewed Mode of arrival: wheelchair Limitations: no limitations - History of Present Illness Initial comments: This is a 46-year-old female the ER for evaluation. Patient resents today for evaluation regarding chest pain. Anterior chest pain. Patient does admit to some alcohol use yesterday, being out of the sun. Significant sunburned anterior chest. Patient denies shortness of breath but does states she felt a little bit weak. Symptoms continued to wake her up from sleep tonight. She denies any recent travel history fever cough or congestion - Related Data Home Medications Medication Instructions Recorded Confirmed DULoxetine HCL [Cymbalta] 60 mg PO HS 11/23/16 07/20/17 tiZANidine [Zanaflex] 4 mg PO HS 07/19/17 07/20/17 Previous Rx's Medication Instructions Recorded Aspirin 81 mg PO DAILY #30 chew 07/20/17 Metoprolol Tartrate [Lopressor] 12.5 mg PO BID #60 dose 07/20/17 Allergies Allergy/AdvReac Type Severity Reaction Status Date / Time erythromycin base Allergy Rash/Hives Verified 08/31/17 04:02 [Erythromycin Base] Macrolide Antibiotics Allergy Rash/Hives Verified 08/31/17 04:02 sulfamethoxazole Allergy Rash/Hives Verified 08/31/17 04:02 [From Bactrim] trimethoprim [From Bactrim] Allergy Rash/Hives Verified 08/31/17 04:02 adhesive tape AdvReac Peels Skin Verified 08/31/17 04:02 penicillin G AdvReac Yeast Verified 08/31/17 04:02 Infection blood thinners AdvReac Unknown Uncoded 08/31/17 04:02 Review of Systems ROS Statement: Those systems with pertinent positive or pertinent negative responses have been documented in the HPI. ROS Other: All systems not noted in ROS Statement are negative. Past Medical History Past Medical History: Asthma, Cancer, Chest Pain / Angina Additional Past Medical History / Comment(s): POST MENOPAUSAL CERVICAL CANCER, blood transfusions, low platelets patient says related to bleeding from cervical cancer History of Any Multi-Drug Resistant Organisms: None Reported Past Surgical History: Tubal Ligation Additional Past Surgical History / Comment(s): COLONOSCOPY EGD, CC implants Past Anesthesia/Blood Transfusion Reactions: No Reported Reaction Past Psychological History: Depression Smoking Status: Former smoker Past Alcohol Use History: None Reported Past Drug Use History: None Reported - Past Family History Mother Family Medical History: Coronary Artery Disease (CAD), Hypertension, Vascular Disorder Additional Family Medical History / Comment(s): patient says her mother sees a pulmonary doctor, general laborer, and leg doctor General Exam - General Exam Comments Initial Comments: Anterior chest wall erythema secondary sunburn Limitations: no limitations General appearance: alert, in no apparent distress Head exam: Present: atraumatic, normocephalic, normal inspection Eye exam: Present: normal appearance, PERRL, EOMI. Absent: scleral icterus, conjunctival injection, periorbital swelling ENT exam: Present: normal exam, mucous membranes moist Neck exam: Present: normal inspection. Absent: tenderness, meningismus, lymphadenopathy Respiratory exam: Present: normal lung sounds bilaterally. Absent: respiratory distress, wheezes, rales, rhonchi, stridor Cardiovascular Exam: Present: regular rate, normal rhythm, normal heart sounds. Absent: systolic murmur, diastolic murmur, rubs, gallop, clicks GI/Abdominal exam: Present: soft, normal bowel sounds. Absent: distended, tenderness, guarding, rebound, rigid Extremities exam: Present: normal inspection, full ROM, normal capillary refill. Absent: tenderness, pedal edema, joint swelling, calf tenderness Back exam: Present: normal inspection Neurological exam: Present: alert, oriented X3, CN II-XII intact Psychiatric exam: Present: normal affect, normal mood Skin exam: Present: warm, dry, intact, normal color. Absent: rash Course Vital Signs 08/31/17 08/31/17 03:58 05:26 Temperature 97.6 F Pulse Rate 73 65 Respiratory 21 18 Rate Blood Pressure 154/98 124/66 O2 Sat by Pulse 99 100 Oximetry EKG Findings - EKG Comments: EKG Findings:: Sinus bradycardia rate of 56, [place] 136, QRS 86, QTc 380 Medical Decision Making - Medical Decision Making 46 female the ER chest pain. Patient has some anterior chest pain, she does admit to 8 being in the bar and then being outside for a couple hours today does have significant sunburned anterior chest. Patient has mild history of heart disease EKG troponin negative. Patient can be discharged home - Lab Data Result diagrams: 08/31/17 04:15 08/31/17 04:15 Lab Results 08/31/17 08/31/17 08/31/17 Range/Units 04:15 04:15 04:15 WBC 5.0 (3.8-10.6) k/uL RBC 5.06 (3.80-5.40) m/uL Hgb 14.3 (11.4-16.0) gm/dL Hct 44.6 (34.0-46.0) % MCV 88.0 (80.0-100.0) fL MCH 28.2 (25.0-35.0) pg MCHC 32.1 (31.0-37.0) g/dL RDW 13.6 (11.5-15.5) % Plt Count 117 L (150-450) k/uL Neutrophils % 52 % Lymphocytes % 36 % Monocytes % 5 % Eosinophils % 5 % Basophils % 0 % Neutrophils # 2.6 (1.3-7.7) k/uL Lymphocytes # 1.8 (1.0-4.8) k/uL Monocytes # 0.3 (0-1.0) k/uL Eosinophils # 0.2 (0-0.7) k/uL Basophils # 0.0 (0-0.2) k/uL Hypochromasia Slight PT (9.0-12.0) sec INR (<1.2) APTT (22.0-30.0) sec D-Dimer (<0.60) mg/L FEU Sodium 144 (137-145) mmol/L Potassium 5.0 (3.5-5.1) mmol/L Chloride 108 H (98-107) mmol/L Carbon Dioxide 25 (22-30) mmol/L Anion Gap 11 mmol/L BUN 13 (7-17) mg/dL Creatinine 0.81 (0.52-1.04) mg/dL Est GFR (CKD-EPI)AfAm >90 (>60 ml/min/1.73 sqM) Est GFR (CKD-EPI)NonAf 87 (>60 ml/min/1.73 sqM) Glucose 85 (74-99) mg/dL Calcium 9.6 (8.4-10.2) mg/dL Magnesium 2.2 (1.6-2.3) mg/dL Total Bilirubin 0.6 (0.2-1.3) mg/dL AST 28 (14-36) U/L ALT 27 (9-52) U/L Alkaline Phosphatase 79 (38-126) U/L Total Creatine Kinase 55 (30-135) U/L CK-MB (CK-2) 0.4 (0.0-2.4) ng/mL CK-MB (CK-2) Rel Index 0.7 Troponin I <0.012 (0.000-0.034) ng/mL NT-Pro-B Natriuret Pep pg/mL Total Protein 7.1 (6.3-8.2) g/dL Albumin 4.4 (3.5-5.0) g/dL Lipase 99 (23-300) U/L 08/31/17 08/31/17 Range/Units 04:15 04:15 WBC (3.8-10.6) k/uL RBC (3.80-5.40) m/uL Hgb (11.4-16.0) gm/dL Hct (34.0-46.0) % MCV (80.0-100.0) fL MCH (25.0-35.0) pg MCHC (31.0-37.0) g/dL RDW (11.5-15.5) % Plt Count (150-450) k/uL Neutrophils % % Lymphocytes % % Monocytes % % Eosinophils % % Basophils % % Neutrophils # (1.3-7.7) k/uL Lymphocytes # (1.0-4.8) k/uL Monocytes # (0-1.0) k/uL Eosinophils # (0-0.7) k/uL Basophils # (0-0.2) k/uL Hypochromasia PT 9.6 (9.0-12.0) sec INR 1.0 (<1.2) APTT 22.0 (22.0-30.0) sec D-Dimer 0.57 (<0.60) mg/L FEU Sodium (137-145) mmol/L Potassium (3.5-5.1) mmol/L Chloride (98-107) mmol/L Carbon Dioxide (22-30) mmol/L Anion Gap mmol/L BUN (7-17) mg/dL Creatinine (0.52-1.04) mg/dL Est GFR (CKD-EPI)AfAm (>60 ml/min/1.73 sqM) Est GFR (CKD-EPI)NonAf (>60 ml/min/1.73 sqM) Glucose (74-99) mg/dL Calcium (8.4-10.2) mg/dL Magnesium (1.6-2.3) mg/dL Total Bilirubin (0.2-1.3) mg/dL AST (14-36) U/L ALT (9-52) U/L Alkaline Phosphatase (38-126) U/L Total Creatine Kinase (30-135) U/L CK-MB (CK-2) (0.0-2.4) ng/mL CK-MB (CK-2) Rel Index Troponin I (0.000-0.034) ng/mL NT-Pro-B Natriuret Pep 85 pg/mL Total Protein (6.3-8.2) g/dL Albumin (3.5-5.0) g/dL Lipase (23-300) U/L Disposition Clinical Impression: Chest pain Disposition: HOME SELF-CARE Condition: Good Instructions: Chest Pain (ED) Is patient prescribed a controlled substance at d/c from ED?: No Referrals: Lima Oakes MD [Primary Care Provider] - 1-2 days
[2017-08-31 05:27] VITALS: BP 124/66; PULSE 65; RESP 18
[2017-08-31 06:12] VITALS: TEMP 97.8
== END 2017-08-31 06:12 | disposition home or self-care (01) ==
LOC: EC 03:54
DX: R07.89 Other chest pain (principal); F32.9 Major depressive disorder, single episode, unspecified; Z85.41 Personal history of malignant neoplasm of cervix uteri; Z87.891 Personal history of nicotine dependence; Z79.899 Other long term (current) drug therapy; Z88.0 Allergy status to penicillin; Z88.1 Allergy status to other antibiotic agents; Z88.2 Allergy status to sulfonamides; Z88.8 Allergy status to other drugs, medicaments and biological substances; Z91.048 Other nonmedicinal substance allergy status; Z86.79 Personal history of other diseases of the circulatory system
CPT/HCPCS: 36415; 80053; 82550; 82553; 83690; 83735; 83880; 84484; 85025; 85379; 85610; 85730; 93005; 96360; 96361; 99285

== ENCOUNTER 2017-10-02 22:52 | Emergency (ER) | payer OTHER ==
--- NOTE | 2017-10-03 00:02 | ED ---
General Adult HPI - General Chief complaint: Skin/Abscess/Foreign Body Stated complaint: Eye swelling Time Seen by Provider: 10/02/17 23:51 Source: patient Mode of arrival: ambulatory Limitations: no limitations - History of Present Illness Initial comments: Sonia is a 47-year-old female who presents the ED today for evaluation of left eyelid redness and swelling. Patient reports that she was in her usual state of health yesterday evening, she states that when she woke this point she noted there were small white spiders in her bed including one on her face. She also noted that throughout the day when she moved some stuff around her room there are more white spiders. Patient states that this afternoon she noticed that her left eyelid appeared red and swollen, she was concerned she may been bitten by a spider so she came to the ER for evaluation. The patient noted redness and swelling at the lateral base of the left eyelid at the lash line. There was mild tenderness to palpation, no exudate. No blurred vision, no pain with eye movement. No headache. No associated fevers, chills, nausea or vomiting. Patient has been applying cold compresses to the eye with improvement in the discomfort. - Related Data Home Medications Medication Instructions Recorded Confirmed DULoxetine HCL [Cymbalta] 60 mg PO HS 11/23/16 07/20/17 tiZANidine [Zanaflex] 4 mg PO HS 07/19/17 07/20/17 Previous Rx's Medication Instructions Recorded Aspirin 81 mg PO DAILY #30 chew 07/20/17 Metoprolol Tartrate [Lopressor] 12.5 mg PO BID #60 dose 07/20/17 Allergies Allergy/AdvReac Type Severity Reaction Status Date / Time erythromycin base Allergy Rash/Hives Verified 10/02/17 23:18 [Erythromycin Base] Macrolide Antibiotics Allergy Rash/Hives Verified 10/02/17 23:18 sulfamethoxazole Allergy Rash/Hives Verified 10/02/17 23:18 [From Bactrim] trimethoprim [From Bactrim] Allergy Rash/Hives Verified 10/02/17 23:18 adhesive tape AdvReac Peels Skin Verified 10/02/17 23:18 penicillin G AdvReac Yeast Verified 10/02/17 23:18 Infection blood thinners AdvReac Unknown Uncoded 10/02/17 23:18 Review of Systems ROS Statement: Those systems with pertinent positive or pertinent negative responses have been documented in the HPI. ROS Other: All systems not noted in ROS Statement are negative. Past Medical History Past Medical History: Asthma, Cancer, Chest Pain / Angina, Hypertension Additional Past Medical History / Comment(s): POST MENOPAUSAL CERVICAL CANCER, blood transfusions, low platelets patient says related to bleeding from cervical cancer History of Any Multi-Drug Resistant Organisms: None Reported Past Surgical History: Tubal Ligation Additional Past Surgical History / Comment(s): COLONOSCOPY EGD, CC implants Past Anesthesia/Blood Transfusion Reactions: No Reported Reaction Past Psychological History: Depression Smoking Status: Former smoker Past Alcohol Use History: None Reported Past Drug Use History: None Reported - Past Family History Mother Family Medical History: Coronary Artery Disease (CAD), Hypertension, Vascular Disorder Additional Family Medical History / Comment(s): patient says her mother sees a pulmonary doctor, commercial crabber, and leg doctor General Exam Limitations: no limitations General appearance: alert, in no apparent distress Head exam: Present: atraumatic, normocephalic Eye exam: Present: normal appearance, PERRL, EOMI, periorbital tenderness. Absent: scleral icterus, conjunctival injection, nystagmus Expanded Eyelids: Stye: Left, Swelling: Left Pupils: Regular, Round: Bilateral, Reactive: Bilateral, Mydriasis: Bilateral, Miosissis: Bilateral Sclera/Conjunctival: Normal Inspection: Bilateral ENT exam: Present: normal exam, mucous membranes moist, TM's normal bilaterally , normal external ear exam Neck exam: Present: normal inspection Respiratory exam: Present: normal lung sounds bilaterally Cardiovascular Exam: Present: regular rate, normal rhythm GI/Abdominal exam: Present: soft. Absent: distended Rectal exam: Present: deferred Extremities exam: Present: full ROM Neurological exam: Present: alert, oriented X3 Psychiatric exam: Present: normal affect, normal mood Skin exam: Present: warm, dry, intact Course Vital Signs 10/02/17 10/03/17 23:16 01:46 Temperature 98.1 F 97.8 F Pulse Rate 88 60 Respiratory 18 16 Rate Blood Pressure 156/104 142/96 O2 Sat by Pulse 98 100 Oximetry Medical Decision Making - Medical Decision Making Patient was seen and evaluated, history was obtained from the patient Patient with left eyelid redness and swelling, minimal tenderness The eye was stained and evaluated under a black light no evidence of uptake to the eye, eyelid was inverted and there is no foreign body Extraocular motions are intact with no pain with movement of the eye. History and physical exam are consistent with a stye, there is minimal surrounding erythema but no evidence of cellulitis. I will treat with topical tobramycin and supportive care. I discussed with the patient the indications for return including worsening redness, pain with movement of the eye, or any new or concerning symptoms All questions pertaining to care were answered to the best my ability patient was discharged home with tobramycin. Patient is to follow up with PCP on thursday. Disposition Clinical Impression: Stye Disposition: HOME SELF-CARE Condition: Good Instructions: Stye (ED) Is patient prescribed a controlled substance at d/c from ED?: No Referrals: Lima Oakes MD [Primary Care Provider] - 1-2 days Time of Disposition: 01:33
[2017-10-03] MEDS ORDERED: TOBRAMYCIN 0.3% OPHTH OINT 3.5 GM TUBE LEFT EYE STA (00:23)
[2017-10-03] MEDS ORDERED: PROPARACAINE 0.5% OPHTH DROPS 15 ML BTL LEFT EYE STA (00:28)
[2017-10-03] MEDS ORDERED: FLUORESCEIN STRIPS 1 MG STRIP LEFT EYE ONE (00:28)
[2017-10-03 01:47] VITALS: BP 142/96; PULSE 60; RESP 16; TEMP 97.8
== END 2017-10-03 01:49 | disposition home or self-care (01) ==
LOC: EC 22:52
DX: H00.024 Hordeolum internum left upper eyelid (principal); F32.9 Major depressive disorder, single episode, unspecified; Z85.41 Personal history of malignant neoplasm of cervix uteri; Z87.891 Personal history of nicotine dependence; Z79.899 Other long term (current) drug therapy; Z88.1 Allergy status to other antibiotic agents; Z88.2 Allergy status to sulfonamides; Z91.048 Other nonmedicinal substance allergy status; Z88.0 Allergy status to penicillin; Z88.8 Allergy status to other drugs, medicaments and biological substances
CPT/HCPCS: 99282

== ENCOUNTER 2018-04-28 05:00 | Emergency (ER) | payer OTHER ==
[2018-04-28 05:07] VITALS: RESP 18; TEMP 97.9
--- NOTE | 2018-04-28 05:38 | ED ---
Chest Pain HPI - General Chief Complaint: Chest Pain Stated Complaint: Chest Pain Time Seen by Provider: 04/28/18 05:19 Source: patient Mode of arrival: wheelchair Limitations: no limitations - History of Present Illness MD Complaint: chest pain Onset/Timin -: hour(s) Onset: during rest Pain Location: substernal Pain Radiation: none Severity: moderate Quality: aching Consistency: constant Improves With: nothing Worsens With: nothing Treatments Prior to Arrival: other (Antacid) - Related Data Home Medications Medication Instructions Recorded Confirmed DULoxetine HCL [Cymbalta] 60 mg PO HS 11/23/16 07/20/17 tiZANidine [Zanaflex] 4 mg PO HS 07/19/17 07/20/17 Previous Rx's Medication Instructions Recorded Aspirin 81 mg PO DAILY #30 chew 07/20/17 Metoprolol Tartrate [Lopressor] 12.5 mg PO BID #60 dose 07/20/17 Allergies Allergy/AdvReac Type Severity Reaction Status Date / Time erythromycin base Allergy Rash/Hives Verified 04/28/18 05:07 [Erythromycin Base] Macrolide Antibiotics Allergy Rash/Hives Verified 04/28/18 05:07 sulfamethoxazole Allergy Rash/Hives Verified 04/28/18 05:07 [From Bactrim] trimethoprim [From Bactrim] Allergy Rash/Hives Verified 04/28/18 05:07 adhesive tape AdvReac Peels Skin Verified 04/28/18 05:07 penicillin G AdvReac Yeast Verified 04/28/18 05:07 Infection blood thinners AdvReac Unknown Uncoded 04/28/18 05:07 Review of Systems ROS Statement: Those systems with pertinent positive or pertinent negative responses have been documented in the HPI. ROS Other: All systems not noted in ROS Statement are negative. Constitutional: Denies: fever, chills Respiratory: Denies: cough, dyspnea Cardiovascular: Reports: chest pain. Denies: palpitations, orthopnea, edema, syncope Gastrointestinal: Denies: abdominal pain, nausea, vomiting Genitourinary: Denies: dysuria Musculoskeletal: Denies: back pain Skin: Denies: rash Neurological: Denies: headache, weakness, numbness EKG Findings - EKG Results: EKG: interpreted by ERMD, sinus rhythm (Rate 61 bpm), normal ST/T - Blocks, [place], Hypertrophy, ST Abn: QRS axis and voltage: left axis deviation (-30 to -90) Chamber hypertrophy or enlargement: only voltage criteria for left ventricular hypertrophy Past Medical History Past Medical History: Asthma, Cancer, Chest Pain / Angina, Hypertension Additional Past Medical History / Comment(s): POST MENOPAUSAL CERVICAL CANCER, blood transfusions, low platelets patient says related to bleeding from cervical cancer, History of Any Multi-Drug Resistant Organisms: None Reported Past Surgical History: Tubal Ligation Additional Past Surgical History / Comment(s): COLONOSCOPY EGD, CC implants, Past Anesthesia/Blood Transfusion Reactions: No Reported Reaction Past Psychological History: Depression Smoking Status: Former smoker Past Alcohol Use History: None Reported Past Drug Use History: None Reported - Past Family History Mother Family Medical History: Coronary Artery Disease (CAD), Hypertension, Vascular Disorder Additional Family Medical History / Comment(s): patient says her mother sees a pulmonary doctor, sanitary plumber, and leg doctor General Exam Limitations: no limitations General appearance: alert, in no apparent distress Head exam: Present: atraumatic, normocephalic Eye exam: Present: normal appearance. Absent: scleral icterus, conjunctival injection ENT exam: Present: normal oropharynx Neck exam: Present: normal inspection Respiratory exam: Present: normal lung sounds bilaterally. Absent: respiratory distress, wheezes, rales, rhonchi, stridor Cardiovascular Exam: Present: regular rate, normal rhythm, normal heart sounds. Absent: systolic murmur, diastolic murmur, rubs, gallop GI/Abdominal exam: Present: soft. Absent: distended, tenderness, guarding, rebound, mass Extremities exam: Present: normal inspection, normal capillary refill. Absent: pedal edema, calf tenderness Back exam: Present: normal inspection. Absent: CVA tenderness (R), CVA tenderness (L) Neurological exam: Present: alert Skin exam: Present: warm, dry, intact, normal color. Absent: rash Course Vital Signs 04/28/18 04/28/18 04/28/18 05:03 05:14 05:30 Temperature 97.9 F Pulse Rate 69 62 60 Respiratory 18 Rate Blood Pressure 149/71 135/87 O2 Sat by Pulse 99 99 Oximetry 04/28/18 06:30 Temperature Pulse Rate 68 Respiratory Rate Blood Pressure 138/77 O2 Sat by Pulse Oximetry Disposition Clinical Impression: Chest pain Disposition: HOME SELF-CARE Condition: Good Instructions (If sedation given, give patient instructions): Chest Pain (ED) Is patient prescribed a controlled substance at d/c from ED?: No Referrals: Lima Oakes MD [Primary Care Provider] - 1-2 days
[2018-04-28 06:10] LABS: Basophils % (A) 1 %; Eosinophils # (A) 0.1 k/uL (0-0.7); Eosinophils % (A) 4 %; HCT 43.4 % (34.0-46.0); HGB 13.7 gm/dL (11.4-16.0); Hypochromasia Slight; Lymphocytes # (A) 1.1 k/uL (1.0-4.8); Lymphocytes % (A) 31 %; MCH 28.2 pg (25.0-35.0); MCHC 31.6 g/dL (31.0-37.0); MCV 89.2 fL (80.0-100.0); Mean Platelet Volume 7.6; Monocytes # (A) 0.2 k/uL (0-1.0); Monocytes % (A) 5 %; Neutrophils % (A) 58 %; Platelet Count 108 k/uL (150-450); RBC 4.86 m/uL (3.80-5.40); RDW 13.5 % (11.5-15.5); WBC 3.5 k/uL (3.8-10.6)
--- NOTE | 2018-04-28 06:18 | XR ---
EXAMINATION TYPE: XR chest 2V DATE OF EXAM: 04/28/2018 COMPARISON: Chest x-ray July 19, 2017 HISTORY: Chest pain TECHNIQUE: Frontal and lateral views of the chest are obtained. FINDINGS: Overlying EKG leads are redemonstrated. There is no focal air space opacity, pleural effusi on, or pneumothorax seen. The cardiac silhouette size is upper limits of normal. The osseous struc tures are intact. IMPRESSION: No acute process. No significant change from prior.
[2018-04-28 06:27] LABS: ALT 17 U/L (9-52); AST 29 U/L (14-36); Albumin 4.1 g/dL (3.5-5.0); Alkaline Phosphatase 78 U/L (38-126); Amylase <30 U/L (30-110); Anion Gap 8 mmol/L; Blood Urea Nitrogen 16 mg/dL (7-17); Calcium 9.5 mg/dL (8.4-10.2); Carbon Dioxide 22 mmol/L (22-30); Chloride 112 mmol/L (98-107); Glucose 93 mg/dL (74-99); Lipase 66 U/L (23-300); Sodium 142 mmol/L (137-145)
[2018-04-28 06:35] LABS: Potassium 4.6 mmol/L (3.5-5.1)
[2018-04-28 06:51] VITALS: BP 138/77; PULSE 68
== END 2018-04-28 07:07 | disposition home or self-care (01) ==
LOC: EC 05:00
DX: R07.2 Precordial pain (principal); F32.9 Major depressive disorder, single episode, unspecified; Z87.09 Personal history of other diseases of the respiratory system; Z85.41 Personal history of malignant neoplasm of cervix uteri; Z87.891 Personal history of nicotine dependence; Z82.49 Family history of ischemic heart disease and other diseases of the circulatory system; Z79.899 Other long term (current) drug therapy; Z88.1 Allergy status to other antibiotic agents; Z88.2 Allergy status to sulfonamides; Z88.0 Allergy status to penicillin; Z88.8 Allergy status to other drugs, medicaments and biological substances; Z91.048 Other nonmedicinal substance allergy status
CPT/HCPCS: 36415; 71046; 80053; 82150; 83690; 84484; 85025; 85379; 93005; 99285

== ENCOUNTER 2018-06-16 16:30 | Emergency (ER) | payer OTHER ==
[2018-06-16] MEDS ORDERED: IPRATROPIUM-ALBUTEROL 3 ML NEB INHALATION STA (17:07)
[2018-06-16] MEDS ORDERED: methylPREDNISolone SOD SUCCI 125 MG/2 ML VIAL IV STA (17:07)
--- NOTE | 2018-06-16 17:42 | ED ---
SOB HPI - General Chief Complaint: Shortness of Breath Stated Complaint: EUSEBIO Time Seen by Provider: 06/16/18 17:00 Source: patient, RN notes reviewed Mode of arrival: ambulatory Limitations: no limitations - History of Present Illness Initial Comments: This is a 39-year-old female history of asthma states she had the onset shortness of breath this earlier prior to admission. She states she feels slightly better now she did have exertional dyspnea. She is a former smoker who quit 25 years ago. He had some chest tightness which is gotten better she states she ran out of her nebulizer meds at home her inhaler did not work with this shortness of breath. No fevers chills nausea vomiting sweats other than menopausal related sweats. No cough or phlegm production. No other modifying factors MD Complaint: shortness of breath - Related Data Home Medications Medication Instructions Recorded Confirmed DULoxetine HCL [Cymbalta] 60 mg PO HS 11/23/16 06/16/18 tiZANidine [Zanaflex] 4 mg PO HS 07/19/17 06/16/18 Previous Rx's Medication Instructions Recorded Albuterol Inhaler [Ventolin Hfa 2 puff INHALATION Q6HR PRN #1 06/16/18 Inhaler] inhaler Ipratropium-Albuterol Nebulize 3 ml INHALATION Q6HR PRN #120 neb 06/16/18 [Duoneb 0.5 mg-3 mg/3 ml Soln] predniSONE 20 mg PO BID #10 tab 06/16/18 Allergies Allergy/AdvReac Type Severity Reaction Status Date / Time erythromycin base Allergy Rash/Hives Verified 06/16/18 17:33 [Erythromycin Base] Macrolide Antibiotics Allergy Rash/Hives Verified 06/16/18 17:33 sulfamethoxazole Allergy Rash/Hives Verified 06/16/18 17:33 [From Bactrim] trimethoprim [From Bactrim] Allergy Rash/Hives Verified 06/16/18 17:33 adhesive tape AdvReac Peels Skin Verified 06/16/18 17:33 penicillin G AdvReac Yeast Verified 06/16/18 17:33 Infection blood thinners AdvReac Unknown Uncoded 06/16/18 16:36 Review of Systems ROS Statement: Those systems with pertinent positive or pertinent negative responses have been documented in the HPI. ROS Other: All systems not noted in ROS Statement are negative. Past Medical History Past Medical History: Asthma, Cancer, Chest Pain / Angina, Hypertension Additional Past Medical History / Comment(s): POST MENOPAUSAL CERVICAL CANCER, blood transfusions, low platelets patient says related to bleeding from cervical cancer, History of Any Multi-Drug Resistant Organisms: None Reported Past Surgical History: Tubal Ligation Additional Past Surgical History / Comment(s): COLONOSCOPY EGD, CC implants, Past Anesthesia/Blood Transfusion Reactions: No Reported Reaction Past Psychological History: Depression Smoking Status: Former smoker Past Alcohol Use History: None Reported Past Drug Use History: None Reported - Past Family History Mother Family Medical History: Coronary Artery Disease (CAD), Hypertension, Vascular Disorder Additional Family Medical History / Comment(s): patient says her mother sees a pulmonary doctor, security assistant, and leg doctor General Exam - General Exam Comments Initial Comments: This is a well-developed well-nourished awake alert oriented 3 female Limitations: no limitations General appearance: alert, in distress Head exam: Present: atraumatic, normocephalic, normal inspection Eye exam: Present: normal appearance, PERRL, EOMI. Absent: scleral icterus, conjunctival injection, periorbital swelling ENT exam: Present: normal exam, mucous membranes moist Neck exam: Present: normal inspection. Absent: tenderness, meningismus, lymphadenopathy Respiratory exam: Present: decreased breath sounds. Absent: respiratory distress, wheezes, rales, rhonchi, stridor Cardiovascular Exam: Present: regular rate, normal rhythm, normal heart sounds. Absent: systolic murmur, diastolic murmur, rubs, gallop, clicks GI/Abdominal exam: Present: soft, normal bowel sounds. Absent: distended, tenderness, guarding, rebound, rigid Extremities exam: Present: normal inspection, full ROM, normal capillary refill. Absent: tenderness, pedal edema, joint swelling, calf tenderness Back exam: Present: normal inspection Neurological exam: Present: alert, oriented X3, CN II-XII intact Psychiatric exam: Present: normal affect, normal mood Skin exam: Present: warm, dry, intact, normal color. Absent: rash Course Vital Signs 06/16/18 06/16/18 06/16/18 16:32 17:41 17:50 Temperature 97.5 F L Pulse Rate 76 64 64 Respiratory 22 Rate Blood Pressure 126/77 O2 Sat by Pulse 97 Oximetry Medical Decision Making - Medical Decision Making Reevaluation patient reveals markedly improved aeration feels much better x-rays and labs were reviewed no acute findings are seen patient be discharged I will write a new prescription for her inhaler as well as her nebulizer medication she'll also go on a short course of oral steroids. - Lab Data Result diagrams: 06/16/18 17:30 06/16/18 17:30 Lab Results 06/16/18 06/16/18 06/16/18 Range/Units 17:30 17:30 17:30 WBC 3.9 (3.8-10.6) k/uL RBC 4.99 (3.80-5.40) m/uL Hgb 14.0 (11.4-16.0) gm/dL Hct 44.4 (34.0-46.0) % MCV 88.9 (80.0-100.0) fL MCH 28.0 (25.0-35.0) pg MCHC 31.5 (31.0-37.0) g/dL RDW 13.7 (11.5-15.5) % Plt Count 114 L (150-450) k/uL Neutrophils % 60 % Lymphocytes % 29 % Monocytes % 5 % Eosinophils % 2 % Basophils % 1 % Neutrophils # 2.4 (1.3-7.7) k/uL Lymphocytes # 1.2 (1.0-4.8) k/uL Monocytes # 0.2 (0-1.0) k/uL Eosinophils # 0.1 (0-0.7) k/uL Basophils # 0.0 (0-0.2) k/uL PT 9.7 (9.0-12.0) sec INR 0.9 (<1.2) APTT 23.0 (22.0-30.0) sec Sodium 140 (137-145) mmol/L Potassium 4.7 (3.5-5.1) mmol/L Chloride 108 H (98-107) mmol/L Carbon Dioxide 26 (22-30) mmol/L Anion Gap 6 mmol/L BUN 16 (7-17) mg/dL Creatinine 0.75 (0.52-1.04) mg/dL Est GFR (CKD-EPI)AfAm >90 (>60 ml/min/1.73 sqM) Est GFR (CKD-EPI)NonAf >90 (>60 ml/min/1.73 sqM) Glucose 85 (74-99) mg/dL Calcium 9.4 (8.4-10.2) mg/dL Magnesium 2.2 (1.6-2.3) mg/dL Total Bilirubin 1.0 (0.2-1.3) mg/dL AST 28 (14-36) U/L ALT 44 (9-52) U/L Alkaline Phosphatase 87 (38-126) U/L Creatine Kinase 44 (30-135) U/L Troponin I (0.000-0.034) ng/mL NT-Pro-B Natriuret Pep pg/mL Total Protein 6.6 (6.3-8.2) g/dL Albumin 3.8 (3.5-5.0) g/dL 06/16/18 06/16/18 Range/Units 17:30 17:30 WBC (3.8-10.6) k/uL RBC (3.80-5.40) m/uL Hgb (11.4-16.0) gm/dL Hct (34.0-46.0) % MCV (80.0-100.0) fL MCH (25.0-35.0) pg MCHC (31.0-37.0) g/dL RDW (11.5-15.5) % Plt Count (150-450) k/uL Neutrophils % % Lymphocytes % % Monocytes % % Eosinophils % % Basophils % % Neutrophils # (1.3-7.7) k/uL Lymphocytes # (1.0-4.8) k/uL Monocytes # (0-1.0) k/uL Eosinophils # (0-0.7) k/uL Basophils # (0-0.2) k/uL PT (9.0-12.0) sec INR (<1.2) APTT (22.0-30.0) sec Sodium (137-145) mmol/L Potassium (3.5-5.1) mmol/L Chloride (98-107) mmol/L Carbon Dioxide (22-30) mmol/L Anion Gap mmol/L BUN (7-17) mg/dL Creatinine (0.52-1.04) mg/dL Est GFR (CKD-EPI)AfAm (>60 ml/min/1.73 sqM) Est GFR (CKD-EPI)NonAf (>60 ml/min/1.73 sqM) Glucose (74-99) mg/dL Calcium (8.4-10.2) mg/dL Magnesium (1.6-2.3) mg/dL Total Bilirubin (0.2-1.3) mg/dL AST (14-36) U/L ALT (9-52) U/L Alkaline Phosphatase (38-126) U/L Creatine Kinase (30-135) U/L Troponin I <0.012 (0.000-0.034) ng/mL NT-Pro-B Natriuret Pep 55 pg/mL Total Protein (6.3-8.2) g/dL Albumin (3.5-5.0) g/dL - EKG Data -: EKG Interpreted by Me (Sinus bradycardia rate of 59. Interval 148 QRS duration 84 QT since QTC 39) - Radiology Data Radiology results: report reviewed (I did review the imaging and report no acute findings.), image reviewed Disposition Clinical Impression: Acute exacerbation of chronic obstructive airways disease Disposition: HOME SELF-CARE Condition: Good Instructions (If sedation given, give patient instructions): COPD (Chronic Obstructive Pulmonary Disease) (ED) Prescriptions: Ipratropium-Albuterol Nebulize [Duoneb 0.5 mg-3 mg/3 ml Soln] 3 ml INHALATION Q6HR PRN #120 neb PRN Reason: Dyspnea predniSONE 20 mg PO BID #10 tab Albuterol Inhaler [Ventolin Hfa Inhaler] 2 puff INHALATION Q6HR PRN #1 inhaler PRN Reason: Dyspnea Is patient prescribed a controlled substance at d/c from ED?: No Referrals: Lima Oakes MD [Primary Care Provider] - 1-2 days
[2018-06-16 17:45] LABS: Basophils % (A) 1 %; Eosinophils # (A) 0.1 k/uL (0-0.7); Eosinophils % (A) 2 %; HCT 44.4 % (34.0-46.0); Lymphocytes # (A) 1.2 k/uL (1.0-4.8); Lymphocytes % (A) 29 %; MCHC 31.5 g/dL (31.0-37.0); MCV 88.9 fL (80.0-100.0); Mean Platelet Volume 7.6; Monocytes # (A) 0.2 k/uL (0-1.0); Monocytes % (A) 5 %; Neutrophils # (A) 2.4 k/uL (1.3-7.7); Neutrophils % (A) 60 %; Platelet Count 114 k/uL (150-450); RBC 4.99 m/uL (3.80-5.40); RDW 13.7 % (11.5-15.5); WBC 3.9 k/uL (3.8-10.6)
[2018-06-16 17:55] LABS: ALT 44 U/L (9-52); AST 28 U/L (14-36); Albumin 3.8 g/dL (3.5-5.0); Alkaline Phosphatase 87 U/L (38-126); Anion Gap 6 mmol/L; Blood Urea Nitrogen 16 mg/dL (7-17); Calcium 9.4 mg/dL (8.4-10.2); Carbon Dioxide 26 mmol/L (22-30); Chloride 108 mmol/L (98-107); Creatine Kinase 44 U/L (30-135); Glucose 85 mg/dL (74-99); Magnesium 2.2 mg/dL (1.6-2.3); Potassium 4.7 mmol/L (3.5-5.1); Sodium 140 mmol/L (137-145); Total Protein 6.6 g/dL (6.3-8.2)
[2018-06-16 17:57] LABS: INR 0.9 (<1.2); Prothrombin Time 9.7 sec (9.0-12.0)
--- NOTE | 2018-06-16 18:29 | XR ---
EXAMINATION TYPE: XR chest 2V DATE OF EXAM: 06/16/2018 COMPARISON: 06/16/2018 HISTORY: Chest pain TECHNIQUE: Frontal and lateral views of the chest are obtained. FINDINGS: Heart and mediastinum are normal. Lungs are clear. Diaphragm is normal. Bony thorax is int act. IMPRESSION: Normal chest. No change.
[2018-06-16 18:55] VITALS: BP 136/79; PULSE 68; RESP 19; TEMP 98.1
== END 2018-06-16 18:55 | disposition home or self-care (01) ==
LOC: EC 16:30
DX: J44.1 Chronic obstructive pulmonary disease with (acute) exacerbation (principal); F32.9 Major depressive disorder, single episode, unspecified; Z79.899 Other long term (current) drug therapy; Z79.51 Long term (current) use of inhaled steroids; Z88.1 Allergy status to other antibiotic agents; Z88.2 Allergy status to sulfonamides; Z88.0 Allergy status to penicillin; Z91.048 Other nonmedicinal substance allergy status; Z88.8 Allergy status to other drugs, medicaments and biological substances; Z87.891 Personal history of nicotine dependence; Z85.41 Personal history of malignant neoplasm of cervix uteri
CPT/HCPCS: 36415; 94640; 93005; 83880; 80053; 82550; 83735; 84484; 85025; 85610; 85730; 71046; 99285; 96374; J2930

== ENCOUNTER → 2018-06-23 | Outpatient (CLI) | payer OTHER ==
[2018-06-23 18:16] LABS: Basophils % (A) 0 %; Eosinophils # (A) 0.1 k/uL (0-0.7); Eosinophils % (A) 3 %; HCT 44.9 % (34.0-46.0); HGB 14.2 gm/dL (11.4-16.0); Lymphocytes # (A) 1.3 k/uL (1.0-4.8); Lymphocytes % (A) 30 %; MCH 27.9 pg (25.0-35.0); MCHC 31.5 g/dL (31.0-37.0); MCV 88.6 fL (80.0-100.0); Mean Platelet Volume 7.5; Monocytes # (A) 0.2 k/uL (0-1.0); Monocytes % (A) 5 %; Neutrophils # (A) 2.4 k/uL (1.3-7.7); Neutrophils % (A) 58 %; Platelet Count 133 k/uL (150-450); RBC 5.07 m/uL (3.80-5.40); RDW 13.4 % (11.5-15.5); WBC 4.2 k/uL (3.8-10.6)
[2018-06-24 00:39] LABS: Albumin 4.2 g/dL (3.80-4.90); Albumin/Globulin Ratio 2.21 (1.60-3.17); Calcium 9.5 mg/dL (8.7-10.3); Globulin 1.9 g/dL (1.6-3.3); Potassium 4.1 mmol/L (3.5-5.5); Total Protein 6.1 g/dL (6.2-8.2)
[2018-06-24 00:46] LABS: T4, Free (Free Thyroxine) 1.2 ng/dL (0.80-1.80)
[2018-06-24 00:51] LABS: Vitamin D 25 Hydroxy 8.6 ng/mL (30.0-100.0)
== END | disposition home or self-care (01) ==
LOC: LABWHC1 16:43
PROVIDERS: ATTEND Nurse Practitioner Acute Care
DX: E03.9 Hypothyroidism, unspecified (principal); E55.9 Vitamin D deficiency, unspecified; R53.82 Chronic fatigue, unspecified
CPT/HCPCS: 36415; 80053; 82306; 82607; 84207; 84439; 84443; 84481; 85025

== ENCOUNTER 2018-08-27 23:55 | Emergency (ER) | payer OTHER ==
[2018-08-28] MEDS ORDERED: SODIUM CHLORIDE 0.9% 1,000 ML IV STA (00:18)
[2018-08-28] MEDS ORDERED: IPRATROPIUM-ALBUTEROL 3 ML NEB INHALATION STA ×2 (00:18→02:19)
[2018-08-28] MEDS ORDERED: predniSONE 20 MG TAB PO STA (00:18)
--- NOTE | 2018-08-28 00:22 | ED ---
SOB HPI - General Chief Complaint: Shortness of Breath Stated Complaint: SOB Time Seen by Provider: 08/28/18 00:16 Source: patient Mode of arrival: ambulatory Limitations: no limitations - History of Present Illness Initial Comments: Sonia is a 47-year-old female with extensive past medical history as listed below who presents the ER today for evaluation of shortness of breath and tightness in her chest. Patient reports that she has a history of asthma but does not feel that she's wheezing she has been using her breathing treatments at home with no improvement. Patient reports feeling that her chest is tight and she just can't get a deep breath. Patient reports that she is seen by cardiology for this in the past and was advised to follow up with pulmonology for further evaluation. Patient has no history of DVT PE or known clotting disorder. She did see her PCP earlier in the week and was told she has very low vitamin D but is otherwise at her baseline. - Related Data Home Medications Medication Instructions Recorded Confirmed DULoxetine HCL [Cymbalta] 60 mg PO HS 11/23/16 06/16/18 tiZANidine [Zanaflex] 4 mg PO HS 07/19/17 06/16/18 Previous Rx's Medication Instructions Recorded Albuterol Inhaler [Ventolin Hfa 2 puff INHALATION Q6HR PRN #1 06/16/18 Inhaler] inhaler Ipratropium-Albuterol Nebulize 3 ml INHALATION Q6HR PRN #120 neb 06/16/18 [Duoneb 0.5 mg-3 mg/3 ml Soln] predniSONE 20 mg PO BID #10 tab 06/16/18 Allergies Allergy/AdvReac Type Severity Reaction Status Date / Time erythromycin base Allergy Rash/Hives Verified 06/16/18 17:33 [Erythromycin Base] Macrolide Antibiotics Allergy Rash/Hives Verified 06/16/18 17:33 sulfamethoxazole Allergy Rash/Hives Verified 06/16/18 17:33 [From Bactrim] trimethoprim [From Bactrim] Allergy Rash/Hives Verified 06/16/18 17:33 adhesive tape AdvReac Peels Skin Verified 06/16/18 17:33 penicillin G AdvReac Yeast Verified 06/16/18 17:33 Infection blood thinners AdvReac Unknown Uncoded 06/16/18 16:36 Review of Systems ROS Statement: Those systems with pertinent positive or pertinent negative responses have been documented in the HPI. ROS Other: All systems not noted in ROS Statement are negative. Past Medical History Past Medical History: Asthma, Cancer, Chest Pain / Angina, COPD, Hypertension Additional Past Medical History / Comment(s): POST MENOPAUSAL CERVICAL CANCER, blood transfusions, low platelets patient says related to bleeding from cervical cancer, History of Any Multi-Drug Resistant Organisms: None Reported Past Surgical History: Tubal Ligation Additional Past Surgical History / Comment(s): COLONOSCOPY EGD, CC implants, Past Anesthesia/Blood Transfusion Reactions: No Reported Reaction Past Psychological History: Depression Smoking Status: Former smoker Past Alcohol Use History: None Reported Past Drug Use History: None Reported - Past Family History Mother Family Medical History: Coronary Artery Disease (CAD), Hypertension, Vascular Disorder Additional Family Medical History / Comment(s): patient says her mother sees a pulmonary doctor, atmospheric sciences professor, and leg doctor General Exam - General Exam Comments Initial Comments: Physical Exam GENERAL: Patient is well-developed and well-nourished. Patient is nontoxic and well-h ydrated and is in no distress. HENT: Normocephalic, Atraumatic. EYES: PERRL, EOMI PULMONARY: Unlabored respirations. No tachypnea No audible rales rhonchi or wheezing was noted. CARDIOVASCULAR: RRR ABDOMEN: Soft and nontender with normal bowel sounds. Obese SKIN: Skin is clear with no lesions or rashes and otherwise unremarkable. : Deferred NEUROLOGIC: Patient is alert and oriented x3. Moving all extremities spontaneously MUSCULOSKELETAL: Normal extremities with adequate strength and full range of motion. No lower extremity swelling or edema. No calf tenderness. PSYCHIATRIC: Normal psychiatric evaluation Limitations: no limitations Course Vital Signs 08/27/18 08/28/18 08/28/18 23:58 01:25 01:58 Temperature 98.5 F 98 F Pulse Rate 97 69 Respiratory 16 18 18 Rate Blood Pressure 126/85 144/66 O2 Sat by Pulse 97 98 Oximetry 08/28/18 08/28/18 02:23 02:39 Temperature Pulse Rate 64 68 Respiratory Rate Blood Pressure O2 Sat by Pulse Oximetry Medical Decision Making - Medical Decision Making The patient was seen and evaluated, history is obtained from patient and review of medical record 47-year-old female with shortness of breath, upon my evaluation patient was tachycardiac she was wearing oxygen at 2 L and satting at 97% Labs, chest x-ray, EKG and CT to rule out pulmonary embolism were ordered Labs with no significant acute abnormalities CT of the chest with no acute findings no signs of pulmonary embolism, no signs of pneumonia Patient received a breathing treatment she at this time she reports she is feeling better and is comfortable with plan for discharge home patient's oxygen saturation is 98% on room air. All questions pertaining to care were answered return parameters were discussed patient discharged home in stable condition - Lab Data Result diagrams: 08/28/18 00:33 08/28/18 00:33 Lab Results 08/28/18 08/28/18 08/28/18 Range/Units 00:33 00:33 00:33 WBC 4.3 (3.8-10.6) k/uL RBC 4.79 (3.80-5.40) m/uL Hgb 13.7 (11.4-16.0) gm/dL Hct 42.1 (34.0-46.0) % MCV 87.7 (80.0-100.0) fL MCH 28.5 (25.0-35.0) pg MCHC 32.5 (31.0-37.0) g/dL RDW 14.7 (11.5-15.5) % Plt Count 106 L (150-450) k/uL Neutrophils % 61 % Lymphocytes % 28 % Monocytes % 6 % Eosinophils % 3 % Basophils % 1 % Neutrophils # 2.6 (1.3-7.7) k/uL Lymphocytes # 1.2 (1.0-4.8) k/uL Monocytes # 0.2 (0-1.0) k/uL Eosinophils # 0.1 (0-0.7) k/uL Basophils # 0.0 (0-0.2) k/uL Hypochromasia Slight PT (9.0-12.0) sec INR (<1.2) APTT (22.0-30.0) sec Sodium 143 (137-145) mmol/L Potassium 3.6 (3.5-5.1) mmol/L Chloride 109 H (98-107) mmol/L Carbon Dioxide 26 (22-30) mmol/L Anion Gap 8 mmol/L BUN 13 (7-17) mg/dL Creatinine 0.91 (0.52-1.04) mg/dL Est GFR (CKD-EPI)AfAm 86 (>60 ml/min/1.73 sqM) Est GFR (CKD-EPI)NonAf 75 (>60 ml/min/1.73 sqM) Glucose 111 H (74-99) mg/dL Calcium 9.5 (8.4-10.2) mg/dL Magnesium 2.0 (1.6-2.3) mg/dL Total Bilirubin 0.5 (0.2-1.3) mg/dL AST 18 (14-36) U/L ALT 19 (9-52) U/L Alkaline Phosphatase 69 (38-126) U/L Troponin I (0.000-0.034) ng/mL NT-Pro-B Natriuret Pep 94 pg/mL Total Protein 6.5 (6.3-8.2) g/dL Albumin 3.9 (3.5-5.0) g/dL 08/28/18 08/28/18 Range/Units 00:33 00:33 WBC (3.8-10.6) k/uL RBC (3.80-5.40) m/uL Hgb (11.4-16.0) gm/dL Hct (34.0-46.0) % MCV (80.0-100.0) fL MCH (25.0-35.0) pg MCHC (31.0-37.0) g/dL RDW (11.5-15.5) % Plt Count (150-450) k/uL Neutrophils % % Lymphocytes % % Monocytes % % Eosinophils % % Basophils % % Neutrophils # (1.3-7.7) k/uL Lymphocytes # (1.0-4.8) k/uL Monocytes # (0-1.0) k/uL Eosinophils # (0-0.7) k/uL Basophils # (0-0.2) k/uL Hypochromasia PT 10.7 (9.0-12.0) sec INR 1.0 (<1.2) APTT 25.1 (22.0-30.0) sec Sodium (137-145) mmol/L Potassium (3.5-5.1) mmol/L Chloride (98-107) mmol/L Carbon Dioxide (22-30) mmol/L Anion Gap mmol/L BUN (7-17) mg/dL Creatinine (0.52-1.04) mg/dL Est GFR (CKD-EPI)AfAm (>60 ml/min/1.73 sqM) Est GFR (CKD-EPI)NonAf (>60 ml/min/1.73 sqM) Glucose (74-99) mg/dL Calcium (8.4-10.2) mg/dL Magnesium (1.6-2.3) mg/dL Total Bilirubin (0.2-1.3) mg/dL AST (14-36) U/L ALT (9-52) U/L Alkaline Phosphatase (38-126) U/L Troponin I <0.012 (0.000-0.034) ng/mL NT-Pro-B Natriuret Pep pg/mL Total Protein (6.3-8.2) g/dL Albumin (3.5-5.0) g/dL - EKG Data -: EKG Interpreted by Me EKG shows normal: sinus rhythm EKG Comments: EKG was obtained due to complaint of shortness of breath. EKG was obtained at 12:41 AM, rate of 69 rhythm is sinus there is a leftward axis deviation. There are normal intervals, ID [id number], curious, 2, QTc 417 there are no acute ST elevations or depressions no evidence of acute ischemia or infarction. Disposition Clinical Impression: Asthma with exacerbation Disposition: HOME SELF-CARE Condition: Stable Instructions (If sedation given, give patient instructions): Asthma (ED) Is patient prescribed a controlled substance at d/c from ED?: No Referrals: Lima Oakes MD [Primary Care Provider] - 1-2 days
[2018-08-28 00:50] LABS: Basophils % (A) 1 %; Eosinophils # (A) 0.1 k/uL (0-0.7); Eosinophils % (A) 3 %; HCT 42.1 % (34.0-46.0); HGB 13.7 gm/dL (11.4-16.0); Hypochromasia Slight; Lymphocytes # (A) 1.2 k/uL (1.0-4.8); Lymphocytes % (A) 28 %; MCH 28.5 pg (25.0-35.0); MCHC 32.5 g/dL (31.0-37.0); MCV 87.7 fL (80.0-100.0); Mean Platelet Volume 8.2; Monocytes # (A) 0.2 k/uL (0-1.0); Monocytes % (A) 6 %; Neutrophils # (A) 2.6 k/uL (1.3-7.7); Neutrophils % (A) 61 %; Platelet Count 106 k/uL (150-450); RBC 4.79 m/uL (3.80-5.40); RDW 14.7 % (11.5-15.5); WBC 4.3 k/uL (3.8-10.6)
[2018-08-28 00:58] LABS: Albumin 3.9 g/dL (3.5-5.0); Calcium 9.5 mg/dL (8.4-10.2); Partial Thromboplastin Time 25.1 sec (22.0-30.0); Potassium 3.6 mmol/L (3.5-5.1); Prothrombin Time 10.7 sec (9.0-12.0); Total Bilirubin 0.5 mg/dL (0.2-1.3); Total Protein 6.5 g/dL (6.3-8.2)
--- NOTE | 2018-08-28 01:01 | XR ---
EXAM: XR Chest, 2 Views CLINICAL HISTORY: ITS.REASON XR Reason: difficulty breathing TECHNIQUE: Frontal and lateral views of the chest. COMPARISON: Chest radiographs 06/16/2018. FINDINGS: Lungs: Unremarkable. No consolidation. Pleural space: Unremarkable. No pneumothorax. Heart: Unremarkable. No cardiomegaly. Mediastinum: Unremarkable. Bones/joints: Unremarkable. IMPRESSION: No acute cardiopulmonary abnormality.
--- NOTE | 2018-08-28 01:47 | CT ---
EXAM: CT Angiography Chest With Intravenous Contrast CLINICAL HISTORY: ITS.REASON CT Reason: Pain TECHNIQUE: Axial computed tomographic angiography images of the chest with intravenous contrast using pulmonary embolism protocol. CTDI is 13.5 mGy and DLP is 465.7 mGy-cm. This CT exam was performed using one or more of the following dose reduction techniques: automated exposure control, adjustment of the mA and/or kV according to patient size, and/or use of iterative reconstruction technique. MIP reconstructed images were created and reviewed. COMPARISON: CT chest and pelvis 08/31/2013. FINDINGS: Pulmonary arteries: Unremarkable. No pulmonary embolism. Aorta: No acute findings. No thoracic aortic aneurysm. Lungs: Unremarkable. No mass. No consolidation. Pleural space: Unremarkable. No significant effusion. No pneumothorax. Heart: Unremarkable. No cardiomegaly. No significant pericardial effusion. No evidence of RV dysfunction. Bones/joints: No acute fracture. No dislocation. Soft tissues: Unremarkable. Lymph nodes: Unremarkable. No enlarged lymph nodes. IMPRESSION: No pulmonary embolism identified.
[2018-08-28 03:52] VITALS: BP 145/70; PULSE 59; RESP 19; TEMP 97.7
== END 2018-08-28 03:49 | disposition home or self-care (01) ==
LOC: EC 23:55
DX: J45.901 Unspecified asthma with (acute) exacerbation (principal); F32.9 Major depressive disorder, single episode, unspecified; Z85.41 Personal history of malignant neoplasm of cervix uteri; Z87.891 Personal history of nicotine dependence; Z82.49 Family history of ischemic heart disease and other diseases of the circulatory system; Z79.899 Other long term (current) drug therapy; Z88.1 Allergy status to other antibiotic agents; Z88.2 Allergy status to sulfonamides; Z88.0 Allergy status to penicillin; Z88.8 Allergy status to other drugs, medicaments and biological substances; Z91.048 Other nonmedicinal substance allergy status
CPT/HCPCS: 99285; 96360; 96361 ×2; 36415; 94640; 83880; 80053; 83735; 84484; 85025; 85610; 85730; 71046; 71275; Q9967

== ENCOUNTER 2018-12-15 15:57 | Emergency (ER) | payer OTHER ==
[2018-12-15 16:08] VITALS: BP 125/89; PULSE 98; RESP 20; TEMP 97.8
[2018-12-15] MEDS ORDERED: KETOROLAC 60 MG/2 ML VIAL IM STA (16:35)
[2018-12-15] MEDS ORDERED: HYDROcodone/APAP 10-325MG 1 EACH TAB PO ONE (16:36)
[2018-12-15] MEDS ORDERED: ACET/COD 300 MG/30 MG STARTER PACK 6 TAB BTL PO STA (17:01)
--- NOTE | 2018-12-15 17:03 | ED ---
Back Pain HPI - General Chief Complaint: Back Pain/Injury Stated Complaint: Back pain Source: patient Limitations: no limitations - History of Present Illness Initial Comments: 48yo female with history of chronic back pain and previous disc herniation the lumbar spine who currently falls [facility] for chronic pain presents most part for chief complaint of low back pain increasing for the past 3 days. Patient states that she has not been taking her medications because they don't seem to help her chronic back pain she states has been an increase in back pain for the past 3 days. Patient denies any falls or direct trauma to the back. She denies fever or IV drug use or history of cancer. Patient states it increases when she coughs the low spine denies any thoracic back pain or chest pain. Patient states certain movements increase the pain. Patient denies any radiation of pain she states is sharp in nature. Patient denies any loss of bowel bladder control urinary retention loss of sensation lower extremities or muscle weakness of the lower extremities. Denies dysuria urgency frequency hematuria. Patient states she can ambulate without difficulty. Patient thinks she ate something else prescribed for pain and states she attempted to contact her furniture painter who said he cannot care sooner appointment and that is why patient presents emergency department today for evaluation. Remaining review of systems negative upon arrival patient appears well now signs of acute distress. - Related Data Home Medications Medication Instructions Recorded Confirmed DULoxetine HCL [Cymbalta] 60 mg PO DAILY 11/23/16 12/15/18 tiZANidine [Zanaflex] 4 mg PO BID PRN 07/19/17 12/15/18 Albuterol Inhaler [Ventolin Hfa 2 puff INHALATION RT-QID PRN 12/15/18 12/15/18 Inhaler] Aspirin 81 mg PO DAILY 12/15/18 12/15/18 Ipratropium-Albuterol Nebulize 3 ml INHALATION RT-QID PRN 12/15/18 12/15/18 [Duoneb 0.5 mg-3 mg/3 ml Soln] Metoprolol Tartrate [Lopressor] 12.5 mg PO BID 12/15/18 12/15/18 Ranitidine HCl [Zantac] 150 mg PO BID PRN 12/15/18 12/15/18 Allergies Allergy/AdvReac Type Severity Reaction Status Date / Time erythromycin base Allergy Rash/Hives Verified 12/15/18 16:08 [Erythromycin Base] Macrolide Antibiotics Allergy Rash/Hives Verified 12/15/18 16:08 sulfamethoxazole Allergy Rash/Hives Verified 12/15/18 16:08 [From Bactrim] trimethoprim [From Bactrim] Allergy Rash/Hives Verified 12/15/18 16:08 adhesive tape AdvReac Peels Skin Verified 12/15/18 16:08 penicillin G AdvReac Yeast Verified 12/15/18 16:08 Infection blood thinners AdvReac Unknown Uncoded 12/15/18 16:08 Review of Systems ROS Statement: Those systems with pertinent positive or pertinent negative responses have been documented in the HPI. ROS Other: All systems not noted in ROS Statement are negative. Past Medical History Past Medical History: Asthma, Cancer, Chest Pain / Angina, COPD, Hypertension Additional Past Medical History / Comment(s): POST MENOPAUSAL CERVICAL CANCER, blood transfusions, low platelets patient says related to bleeding from cervical cancer, History of Any Multi-Drug Resistant Organisms: None Reported Past Surgical History: Tubal Ligation Additional Past Surgical History / Comment(s): COLONOSCOPY EGD, CC implants, Past Anesthesia/Blood Transfusion Reactions: No Reported Reaction Past Psychological History: Depression Smoking Status: Former smoker Past Alcohol Use History: None Reported Past Drug Use History: None Reported - Past Family History Mother Family Medical History: Coronary Artery Disease (CAD), Hypertension, Vascular Disorder Additional Family Medical History / Comment(s): patient says her mother sees a pulmonary doctor, receivables specialist, and leg doctor General Exam - General Exam Comments Initial Comments: General: The patient is awake and alert, in no distress, and does not appear acutely ill. Eye: +3 mm pupils are equal, round and reactive to light, extra-ocular movements are intact. No nystagmus. There is normal conjunctiva bilaterally. No signs of icterus. Cardiovascular: There is a regular rate and rhythm. No murmur, rub or gallop is appreciated. Respiratory: Lungs are clear to auscultation, respirations are non-labored, breath sounds are equal. No wheezes, stridor, rales, or rhonchi. Gastrointestinal: Soft, non-distended, non-tender abdomen without masses or organomegaly noted. There is no rebound or guarding present. No CVA tenderness. Musculoskeletal: Normal ROM, no tenderness of the LE b/l (-) SLR.. Strength 5/5 of the LE equal b/l. Sensation intact of the lower extremities b/l including saddle region. Radial pulses equal bilaterally 2+. Neurological: A&O x 3. CN II-XII intact grossly, There are no obvious motor or sensory deficits. Coordination appears grossly intact. Speech is normal. +2/5 patellar and achilles reflexes. No myoclonus or fasciculations. Patient has paravertbral tenderness of lumbar spine, no mindline tenderness. Ambulate without difficulty. Skin: Skin is warm and dry and no rashes or lesions are noted. Psychiatric: Cooperative, appropriate mood & affect, normal judgment. Limitations: no limitations Course Vital Signs 12/15/18 16:06 Temperature 97.8 F Pulse Rate 98 Respiratory 20 Rate Blood Pressure 125/89 O2 Sat by Pulse 98 Oximetry Medical Decision Making - Medical Decision Making Well appearing 48-year-old female presented for low back pain. Complains of chronic back pain states her medications are not working. Patient has a negative review. No prescription opiates. Patient given a starter pack of Tylenol No. 3 instructed to follow-up at pain management clinic. Patient has no alarming features of low back pain. Patient appears well and the 20 no signs of cauda equina. Patient has no urinary complaints this does not appear to be in the CVA region. Reproducible Paravertebral L patient of the lumbar spine. No thoracic or cervical pain. Patient be discharged home return primary to discuss patient verbalizes understanding appears well case discussed with attending provider palpation. Disposition Clinical Impression: Acute exacerbation of chronic low back pain Disposition: HOME SELF-CARE Condition: Good Instructions (If sedation given, give patient instructions): Acute Low Back Pain (ED) Additional Instructions: Please use medication as discussed. Please follow-up with pain management/spine clinic as discussed in next week. Please return to emergency room if the symptoms increase or worsen or for any other concerns-falls, loss of bowel or bladder control, urinating self/inability to urinate, fevers, leg weakness or sensation changes . Is patient prescribed a controlled substance at d/c from ED?: No Referrals: Lima Oakes MD [Primary Care Provider] - 1-2 days Time of Disposition: 17:02
== END 2018-12-15 17:14 | disposition home or self-care (01) ==
LOC: EC 15:57
DX: G89.29 Other chronic pain (principal); M54.5 Low back pain; J44.9 Chronic obstructive pulmonary disease, unspecified; I10 Essential (primary) hypertension; I20.9 Angina pectoris, unspecified; F32.9 Major depressive disorder, single episode, unspecified; Z87.891 Personal history of nicotine dependence; Z88.0 Allergy status to penicillin; Z88.1 Allergy status to other antibiotic agents; Z88.2 Allergy status to sulfonamides; Z88.8 Allergy status to other drugs, medicaments and biological substances; Z91.048 Other nonmedicinal substance allergy status; Z79.82 Long term (current) use of aspirin; Z79.899 Other long term (current) drug therapy; Z85.41 Personal history of malignant neoplasm of cervix uteri; Z86.2 Personal history of diseases of the blood and blood-forming organs and certain disorders involving the immune mechanism; Z98.51 Tubal ligation status
CPT/HCPCS: 99283; 96372; J1885

== ENCOUNTER 2019-02-27 16:29 | Emergency (ER) | payer OTHER ==
[2019-02-27 16:39] VITALS: BP 168/79; PULSE 79; RESP 18; TEMP 97.9
--- NOTE | 2019-02-27 16:57 | ED ---
General Adult HPI - General Chief complaint: Skin/Abscess/Foreign Body Stated complaint: Rash Time Seen by Provider: 02/27/19 16:42 Source: patient, RN notes reviewed, old records reviewed Mode of arrival: ambulatory Limitations: no limitations - History of Present Illness Initial comments: Patient is a 48 year old female, presents with rash over arms, back, legs. Patient reports that it has spread to her face and is pruritic. She also complains of a second rash under abdominal panus that is pruritic. She reports that noone else has a similiar rash. - Related Data Home Medications Medication Instructions Recorded Confirmed DULoxetine HCL [Cymbalta] 60 mg PO DAILY 11/23/16 12/15/18 tiZANidine [Zanaflex] 4 mg PO BID PRN 07/19/17 12/15/18 Albuterol Inhaler [Ventolin Hfa 2 puff INHALATION RT-QID PRN 12/15/18 12/15/18 Inhaler] Aspirin 81 mg PO DAILY 12/15/18 12/15/18 Ipratropium-Albuterol Nebulize 3 ml INHALATION RT-QID PRN 12/15/18 12/15/18 [Duoneb 0.5 mg-3 mg/3 ml Soln] Metoprolol Tartrate [Lopressor] 12.5 mg PO BID 12/15/18 12/15/18 Ranitidine HCl [Zantac] 150 mg PO BID PRN 12/15/18 12/15/18 Previous Rx's Medication Instructions Recorded Fluconazole [Diflucan] 150 mg PO DAILY #3 tab 02/27/19 Hydrocortisone [Hydrocortisone 1%] 1 applic TOPICAL QID #120 bottle 02/27/19 Nystatin 100,000 Unit/gm Powd 1 applic TOPICAL BID #120 gm 02/27/19 [Mycostatin Powder] Permethrin 5% Cream [Elimite] 1 applic TOPICAL ONCE #60 cream..g. 02/27/19 Allergies Allergy/AdvReac Type Severity Reaction Status Date / Time erythromycin base Allergy Rash/Hives Verified 12/15/18 16:08 [Erythromycin Base] Macrolide Antibiotics Allergy Rash/Hives Verified 12/15/18 16:08 sulfamethoxazole Allergy Rash/Hives Verified 12/15/18 16:08 [From Bactrim] trimethoprim [From Bactrim] Allergy Rash/Hives Verified 12/15/18 16:08 adhesive tape AdvReac Peels Skin Verified 12/15/18 16:08 penicillin G AdvReac Yeast Verified 12/15/18 16:08 Infection blood thinners AdvReac Unknown Uncoded 12/15/18 16:08 Review of Systems ROS Statement: Those systems with pertinent positive or pertinent negative responses have been documented in the HPI. ROS Other: All systems not noted in ROS Statement are negative. Past Medical History Past Medical History: Asthma, Cancer, Chest Pain / Angina, COPD, Hypertension Additional Past Medical History / Comment(s): POST MENOPAUSAL CERVICAL CANCER, blood transfusions, low platelets patient says related to bleeding from cervical cancer, History of Any Multi-Drug Resistant Organisms: None Reported Past Surgical History: Tubal Ligation Additional Past Surgical History / Comment(s): COLONOSCOPY EGD, CC implants, Past Anesthesia/Blood Transfusion Reactions: No Reported Reaction Past Psychological History: Depression Smoking Status: Former smoker Past Alcohol Use History: None Reported Past Drug Use History: None Reported - Past Family History Mother Family Medical History: Coronary Artery Disease (CAD), Hypertension, Vascular Disorder Additional Family Medical History / Comment(s): patient says her mother sees a pulmonary doctor, packing and stamping machine operator, and leg doctor General Exam - General Exam Comments Initial Comments: 48 year old obese female, no distress. Limitations: no limitations General appearance: alert, in no apparent distress Head exam: Present: atraumatic, normocephalic, normal inspection Eye exam: Present: normal appearance, PERRL, EOMI. Absent: scleral icterus, c onjunctival injection, periorbital swelling ENT exam: Present: normal exam, mucous membranes moist, other (papular erythematous rash liniear pattern of neck, forehead, hairline. Similiar rash over legs, back and abdomen. ) Neck exam: Present: normal inspection. Absent: tenderness, meningismus, lymphadenopathy Respiratory exam: Present: normal lung sounds bilaterally. Absent: respiratory distress, wheezes, rales, rhonchi, stridor Cardiovascular Exam: Present: regular rate, normal rhythm, normal heart sounds. Absent: systolic murmur, diastolic murmur, rubs, gallop, clicks GI/Abdominal exam: Present: soft, normal bowel sounds. Absent: distended, tenderness, guarding, rebound, rigid Back exam: Present: normal inspection Neurological exam: Present: alert, oriented X3, CN II-XII intact Psychiatric exam: Present: normal affect, normal mood Skin exam: Present: warm, dry, intact, normal color, rash (erythematous rash over panus folds. ) Course Vital Signs 02/27/19 16:34 Temperature 97.9 F Pulse Rate 79 Respiratory 18 Rate Blood Pressure 168/79 O2 Sat by Pulse 100 Oximetry Medical Decision Making - Medical Decision Making Patient is a 48 year old female, presents today for concern for rash. Patient has papular rash over arms and legs and face. Rash is similiar to scabies. Patient will be treated with permethrin. Discussed treat contacts. Patient also has seconday lorri intertrigo. PAtient will be discharged with nystatin powder, and diflucan. Discussed return parameters. Disposition Clinical Impression: Scabies, Candidal intertrigo Disposition: HOME SELF-CARE Condition: Good Instructions (If sedation given, give patient instructions): Scabies (ED), Yeast Infection (ED) Additional Instructions: Patient advised to wash all all clothing and bedding in hot water. Patient should use the permethrin cream. Cover from head to toe, and sleeping clean sheets. Shower in the morning and change the sheets. Repeat treatment in one week. Take the Diflucan as prescribed for the yeast infection. Also keep the area of your skin clean and dry with nystatin powder. Prescriptions: Fluconazole [Diflucan] 150 mg PO DAILY #3 tab Permethrin 5% Cream [Elimite] 1 applic TOPICAL ONCE #60 cream..g. Hydrocortisone [Hydrocortisone 1%] 1 applic TOPICAL QID #120 bottle Nystatin 100,000 Unit/gm Powd [Mycostatin Powder] 1 applic TOPICAL BID #120 gm Is patient prescribed a controlled substance at d/c from ED?: No Referrals: Lima Oakes MD [Primary Care Provider] - 1-2 days Time of Disposition: 16:54
== END 2019-02-27 16:59 | disposition home or self-care (01) ==
LOC: EC 16:29
DX: B86 Scabies (principal); B37.2 Candidiasis of skin and nail; J44.9 Chronic obstructive pulmonary disease, unspecified; I20.9 Angina pectoris, unspecified; I10 Essential (primary) hypertension; F32.9 Major depressive disorder, single episode, unspecified; Z87.891 Personal history of nicotine dependence; Z88.0 Allergy status to penicillin; Z88.1 Allergy status to other antibiotic agents; Z88.2 Allergy status to sulfonamides; Z88.8 Allergy status to other drugs, medicaments and biological substances; Z91.048 Other nonmedicinal substance allergy status; Z79.82 Long term (current) use of aspirin; Z79.899 Other long term (current) drug therapy; Z85.41 Personal history of malignant neoplasm of cervix uteri; Z86.2 Personal history of diseases of the blood and blood-forming organs and certain disorders involving the immune mechanism
CPT/HCPCS: 99283

== ENCOUNTER 2019-09-14 16:55 | Observation (INO) | payer OTHER ==
[2019-09-14] MEDS ORDERED: Acetaminophen-Codeine 300-30mg TAB PO STA (17:25)
[2019-09-14] MEDS: ASPIRIN 81 MG PO STA (17:50)
[2019-09-14 17:58] LABS: Basophils % (A) 0 %; Eosinophils # (A) 0.1 k/uL (0-0.7); Eosinophils % (A) 1 %; HCT 47.5 % (34.0-46.0); HGB 14.8 gm/dL (11.4-16.0); Hypochromasia Slight; Lymphocytes # (A) 1.1 k/uL (1.0-4.8); Lymphocytes % (A) 14 %; MCH 28.7 pg (25.0-35.0); MCHC 31.2 g/dL (31.0-37.0); MCV 91.7 fL (80.0-100.0); Mean Platelet Volume 8.7; Monocytes # (A) 0.5 k/uL (0-1.0); Monocytes % (A) 6 %; Neutrophils # (A) 6.3 k/uL (1.3-7.7); Neutrophils % (A) 78 %; Platelet Count 171 k/uL (150-450); RBC 5.18 m/uL (3.80-5.40); RDW 13.1 % (11.5-15.5); WBC 8.1 k/uL (3.8-10.6)
[2019-09-14 18:07] LABS: Albumin 4.5 g/dL (3.5-5.0); Magnesium 2.4 mg/dL (1.6-2.3); Potassium 4.7 mmol/L (3.5-5.1); Total Bilirubin 0.6 mg/dL (0.2-1.3); Total Protein 7.4 g/dL (6.3-8.2)
--- NOTE | 2019-09-14 18:22 | XR ---
EXAMINATION TYPE: XR chest 2V DATE OF EXAM: 09/14/2019 COMPARISON: 08/28/2018 HISTORY: Difficulty breathing TECHNIQUE: FINDINGS: Heart and mediastinum are normal. Lungs are clear. Diaphragm is normal. There are chest brennan ds. Bony thorax appears normal. IMPRESSION: Normal chest. No change
[2019-09-14 18:23] LABS: D-Dimer 0.43 mg/L FEU (<0.60); INR 0.9 (<1.2); Prothrombin Time 9.6 sec (9.0-12.0)
--- NOTE | 2019-09-14 18:23 | XR ---
EXAMINATION TYPE: XR shoulder complete LT DATE OF EXAM: 09/14/2019 COMPARISON: NONE HISTORY: Shoulder pain TECHNIQUE: 3 views FINDINGS: I see no fracture nor dislocation. Joint spaces are normal. There are no pathologic calcifi cations. IMPRESSION: Negative left shoulder exam.
[2019-09-14 18:26] LABS: Partial Thromboplastin Time 21.6 sec (22.0-30.0)
[2019-09-14] MEDS ORDERED: NITROGLYCERIN SL TABS 0.4 MG TAB SUBLINGUAL PRN (18:50)
--- NOTE | 2019-09-14 18:53 | ED ---
General Adult HPI - General Chief complaint: Extremity Problem,Nontraumatic Stated complaint: Lt shoulder pain Time Seen by Provider: 09/14/19 17:13 Source: patient, RN notes reviewed, old records reviewed Mode of arrival: ambulatory Limitations: no limitations - History of Present Illness Initial comments: 49-year-old female patient with ED for evaluation of left shoulder pain has been ongoing for last 4 days. Patient reports that she has pain in anterior and posterior aspect of the left shoulder. Patient reports that when the pain is bad and somewhat takes her breath away. Denies any current chest pain or shortness of breath at this time. Denies any recent falls or trauma or any other reason why she would have left shoulder pain. Denies any other complaints at this time. Systemic: Pt denies fatigue, fever/chills, rash. Pt denies weakness, night sweats, weight loss. Neuro: Pt denies headache, visual disturbances, syncope or pre-syncope. HEENT: Pt denies ocular discharge or irritation, otalgia, rhinorrhea, pharyngitis or notable lymphadenopathy. Cardiopulmonary: Pt denies chest pain, SOB, heart palpitations, dyspnea on exertion. Abdominal/GI: Pt denies abdominal pain, n/v/d. : Pt denies dysuria, burning w/ urination, frequency/urgency. Denies new onset urinary or bowel incontinence. MSK: Pt denies myalgia, loss of strength or function in extremities. Neuro: Pt denies new onset weakness, paresthesias. - Related Data Home Medications Medication Instructions Recorded Confirmed DULoxetine HCL [Cymbalta] 60 mg PO DAILY 11/23/16 12/15/18 tiZANidine [Zanaflex] 4 mg PO BID PRN 07/19/17 12/15/18 Albuterol Inhaler (Mhu) [Ventolin 2 puff INHALATION RT-QID PRN 12/15/18 12/15/18 Hfa Inhaler (Mhu)] Aspirin 81 mg PO DAILY 12/15/18 12/15/18 Ipratropium-Albuterol Nebulize 3 ml INHALATION RT-QID PRN 12/15/18 12/15/18 [Duoneb 0.5 mg-3 mg/3 ml Soln] Metoprolol Tartrate [Lopressor] 12.5 mg PO BID 12/15/18 12/15/18 raNITIdine HCL [Zantac] 150 mg PO BID PRN 12/15/18 12/15/18 Previous Rx's Medication Instructions Recorded Fluconazole [Diflucan] 150 mg PO DAILY #3 tab 02/27/19 Hydrocortisone [Hydrocortisone 1%] 1 applic TOPICAL QID #120 bottle 02/27/19 Nystatin 100,000 Unit/gm Powd 1 applic TOPICAL BID #120 gm 02/27/19 [Mycostatin Powder] Permethrin 5% Cream [Elimite] 1 applic TOPICAL ONCE #60 cream..g. 02/27/19 Allergies Allergy/AdvReac Type Severity Reaction Status Date / Time erythromycin base Allergy Rash/Hives Verified 09/14/19 16:57 [Erythromycin Base] Macrolide Antibiotics Allergy Rash/Hives Verified 09/14/19 16:57 sulfamethoxazole Allergy Rash/Hives Verified 09/14/19 16:57 [From Bactrim] trimethoprim [From Bactrim] Allergy Rash/Hives Verified 09/14/19 16:57 adhesive tape AdvReac Peels Skin Verified 09/14/19 16:57 penicillin G AdvReac Yeast Verified 09/14/19 16:57 Infection blood thinners AdvReac Unknown Uncoded 09/14/19 16:57 Review of Systems ROS Statement: Those systems with pertinent positive or pertinent negative responses have been documented in the HPI. ROS Other: All systems not noted in ROS Statement are negative. Past Medical History Past Medical History: Asthma, Cancer, Chest Pain / Angina, COPD, Hypertension Additional Past Medical History / Comment(s): POST MENOPAUSAL CERVICAL CANCER, blood transfusions, low platelets patient says related to bleeding from cervical cancer, History of Any Multi-Drug Resistant Organisms: None Reported Past Surgical History: Tubal Ligation Additional Past Surgical History / Comment(s): COLONOSCOPY EGD, CC implants, Past Anesthesia/Blood Transfusion Reactions: No Reported Reaction Past Psychological History: Depression Smoking Status: Never smoker Past Alcohol Use History: None Reported Past Drug Use History: None Reported - Past Family History Mother Family Medical History: Coronary Artery Disease (CAD), Hypertension, Vascular Disorder Additional Family Medical History / Comment(s): patient says her mother sees a pulmonary doctor, laundry manager, and leg doctor General Exam - General Exam Comments Initial Comments: Constitutional: NAD, AOX3, Pt has pleasant affect. HEENT: NC/AT, trachea midline, neck supple, no lymphadenopathy. Posterior pharynx non erythematous, without exudates. External ears appear normal, without discharge. Mucous membranes moist. Eyes PERRLA, EOM intact. There is no scleral icterus. No pallor noted. Cardiopulmonary: RRR, no murmurs, rubs or gallops, no JVD noted. Lungs CTAB in anterior and posterior dominguez. No peripheral edema. Abdominal exam: Abdomen soft and non-distended. Abdomen non-tender to palpation in all 4 quadrants. Bowel sounds active in LLQ. No hepatosplenomegaly. No ecchymosis Neuro: CN II-XII grossly intact. No nuchal rigidity. No raccon eyes, no altamirano sign, no hemotympanum. No cervical spinal tenderness. MSK: Mild discomfort range of motion left shoulder, no focal area of tenderness or any external skin changes. Full active ROM in upper and lower extremities, 5/5 stregnth. Limitations: no limitations Course Vital Signs 09/14/19 16:57 Temperature 97.5 F L Pulse Rate 80 Respiratory 16 Rate Blood Pressure 168/81 O2 Sat by Pulse 97 Oximetry Medical Decision Making - Medical Decision Making 49-year-old female patient with the chief complaint of left shoulder pain for the last 4 days. No injury. Patient felt signs are stable, afebrile. Patient is a former smoker with hypertension. EKG does display some T-wave inversions. Chest exam plain film of shoulder negative. D-dimer is negative. Troponin is indeterminate. Patient will be observed for possible ACS equivalent with serial troponins. Case discussed with Dr. Price. - Lab Data Result diagrams: 09/14/19 17:48 09/14/19 17:48 Lab Results 09/14/19 09/14/19 09/14/19 Range/Units 17:48 17:48 17:48 WBC 8.1 (3.8-10.6) k/uL RBC 5.18 (3.80-5.40) m/uL Hgb 14.8 (11.4-16.0) gm/dL Hct 47.5 H (34.0-46.0) % MCV 91.7 (80.0-100.0) fL MCH 28.7 (25.0-35.0) pg MCHC 31.2 (31.0-37.0) g/dL RDW 13.1 (11.5-15.5) % Plt Count 171 (150-450) k/uL Neutrophils % 78 % Lymphocytes % 14 % Monocytes % 6 % Eosinophils % 1 % Basophils % 0 % Neutrophils # 6.3 (1.3-7.7) k/uL Lymphocytes # 1.1 (1.0-4.8) k/uL Monocytes # 0.5 (0-1.0) k/uL Eosinophils # 0.1 (0-0.7) k/uL Basophils # 0.0 (0-0.2) k/uL Hypochromasia Slight PT 9.6 (9.0-12.0) sec INR 0.9 (<1.2) APTT 21.6 L (22.0-30.0) sec D-Dimer 0.43 (<0.60) mg/L FEU Sodium 141 (137-145) mmol/L Potassium 4.7 (3.5-5.1) mmol/L Chloride 107 (98-107) mmol/L Carbon Dioxide 27 (22-30) mmol/L Anion Gap 7 mmol/L BUN 22 H (7-17) mg/dL Creatinine 0.91 (0.52-1.04) mg/dL Est GFR (CKD-EPI)AfAm 85 (>60 ml/min/1.73 sqM) Est GFR (CKD-EPI)NonAf 74 (>60 ml/min/1.73 sqM) Glucose 114 H (74-99) mg/dL Calcium 10.0 (8.4-10.2) mg/dL Magnesium 2.4 H (1.6-2.3) mg/dL Total Bilirubin 0.6 (0.2-1.3) mg/dL AST 18 (14-36) U/L ALT 19 (4-34) U/L Alkaline Phosphatase 75 (38-126) U/L Troponin I (0.000-0.034) ng/mL Total Protein 7.4 (6.3-8.2) g/dL Albumin 4.5 (3.5-5.0) g/dL 09/14/19 Range/Units 17:48 WBC (3.8-10.6) k/uL RBC (3.80-5.40) m/uL Hgb (11.4-16.0) gm/dL Hct (34.0-46.0) % MCV (80.0-100.0) fL MCH (25.0-35.0) pg MCHC (31.0-37.0) g/dL RDW (11.5-15.5) % Plt Count (150-450) k/uL Neutrophils % % Lymphocytes % % Monocytes % % Eosinophils % % Basophils % % Neutrophils # (1.3-7.7) k/uL Lymphocytes # (1.0-4.8) k/uL Monocytes # (0-1.0) k/uL Eosinophils # (0-0.7) k/uL Basophils # (0-0.2) k/uL Hypochromasia PT (9.0-12.0) sec INR (<1.2) APTT (22.0-30.0) sec D-Dimer (<0.60) mg/L FEU Sodium (137-145) mmol/L Potassium (3.5-5.1) mmol/L Chloride (98-107) mmol/L Carbon Dioxide (22-30) mmol/L Anion Gap mmol/L BUN (7-17) mg/dL Creatinine (0.52-1.04) mg/dL Est GFR (CKD-EPI)AfAm (>60 ml/min/1.73 sqM) Est GFR (CKD-EPI)NonAf (>60 ml/min/1.73 sqM) Glucose (74-99) mg/dL Calcium (8.4-10.2) mg/dL Magnesium (1.6-2.3) mg/dL Total Bilirubin (0.2-1.3) mg/dL AST (14-36) U/L ALT (4-34) U/L Alkaline Phosphatase (38-126) U/L Troponin I 0.012 (0.000-0.034) ng/mL Total Protein (6.3-8.2) g/dL Albumin (3.5-5.0) g/dL - EKG Data -: EKG Interpreted by Me (and Dr. Price ) EKG Comments: Ventricular rate 60, when necessary for 1.2, QRS 100, QT/QTc 400/400. Normal sensory sinus rhythm, left axis deviation. Moderate voltage criteria for LVH. Nonspecific changes. Disposition Clinical Impression: Shoulder pain Narrative: rule out ACS equivelent Disposition: ADMITTED IP TO THIS HOSP Condition: Fair Is patient prescribed a controlled substance at d/c from ED?: No Referrals: Lima Oakes MD [Primary Care Provider] - 1-2 days
[2019-09-14] MEDS: METOPROLOL TARTRATE 12.5 MG TAB PO SCH (22:30)
[2019-09-14] MEDS: tiZANidine 4 MG TAB PO PRN (23:59)
[2019-09-15 02:54] LABS: Cholesterol 196 mg/dL (<200); HDL Cholesterol 88 mg/dL (40-60); LDL Cholesterol,Calculated 89 mg/dL (0-99); Triglycerides 96 mg/dL (<150)
--- NOTE | 2019-09-15 07:31 | P.HPIM ---
History of Present Illness This is a pleasant 49 years old female with past medical history of asthma, COPD, hypertension, cervical cancer. She presents because of left shoulder plate pain since last Thursday which gets more severe yesterday morning, this morn ing her pain is about 4/10 in severity, nonradiating, nonspecific. she called her PCP Dr. chand who referred her to emergency room. Also she follows up with Dr. Samuel the remelt operator as Dr. Samuel the avionics systems repairer. Also she [facility] and she supposed to get MRI of her whole spine for back pain but she missed her appointment and she needs to reschedule. Patient denies weakness or numbness in her left upper extremity, she had some dyspnea when patient gets more severe however she still dyspneic no coughing, no headache or numbness or palpitation. No fever She denies trauma she denies smoking, alcohol or illicit drugs Vitals are stable, blood pressure 94/56, labs including CBC, INR, BMP and liver enzymes were unremarkable, serial troponins are -0.0122 and 0.015, negative d- dimer at 0.43 Chest x-ray: No acute process. EKG showing normal sinus rhythm at 60 bpm, T- wave inversion in lead III and aVF Left shoulder x-rays: No acute process The emergency room she was started on aspirin 324 Review of Systems CONSTITUTIONAL: No fever, no malaise, no fatigue. HEENT: No recent visual problems or hearing problems. Denied any sore throat. CARDIOVASCULAR: No orthopnea, PND, no palpitations, no syncope. PULMONARY: No shortness of breath, no cough, no hemoptysis. GASTROINTESTINAL: No diarrhea, no nausea, no vomiting, no abdominal pain. Normoactive bowel sounds. NEUROLOGICAL: No headaches, no weakness, no numbness. HEMATOLOGICAL: Denies any bleeding or petechiae. GENITOURINARY: Denies any burning micturition, frequency, or urgency. MUSCULOSKELETAL/RHEUMATOLOGICAL: Denies any joint pain, swelling, or any muscle pain. ENDOCRINE: Denies any polyuria or polydipsia. Past Medical History Past Medical History: Asthma, Cancer, Chest Pain / Angina, COPD, Hypertension Additional Past Medical History / Comment(s): POST MENOPAUSAL CERVICAL CANCER, blood transfusions, low platelets patient says related to bleeding from cervical cancer, History of Any Multi-Drug Resistant Organisms: None Reported Past Surgical History: Tubal Ligation Additional Past Surgical History / Comment(s): COLONOSCOPY EGD, CC implants, Past Anesthesia/Blood Transfusion Reactions: No Reported Reaction Past Psychological History: Depression Smoking Status: Former smoker Past Alcohol Use History: None Reported Past Drug Use History: None Reported - Past Family History Mother Family Medical History: Coronary Artery Disease (CAD), Hypertension, Vascular Disorder Additional Family Medical History / Comment(s): patient says her mother sees a pulmonary doctor, remelt operator, and leg doctor Medications and Allergies Home Medications Medication Instructions Recorded Confirmed Type DULoxetine HCL [Cymbalta] 60 mg PO W/LUNCH 11/23/16 09/14/19 History tiZANidine [Zanaflex] 4 mg PO BID PRN 07/19/17 09/14/19 History Aspirin 81 mg PO DAILY@0700 12/15/18 09/14/19 History Metoprolol Tartrate [Lopressor] 12.5 mg PO BID@0700,1900 12/15/18 09/14/19 History Allergies Allergy/AdvReac Type Severity Reaction Status Date / Time erythromycin base Allergy Rash/Hives Verified 09/14/19 19:26 [Erythromycin Base] Macrolide Antibiotics Allergy Rash/Hives Verified 09/14/19 19:26 sulfamethoxazole Allergy Rash/Hives Verified 09/14/19 19:26 [From Bactrim] trimethoprim [From Bactrim] Allergy Rash/Hives Verified 09/14/19 19:26 adhesive tape AdvReac Peels Skin Verified 09/14/19 19:26 penicillin G AdvReac Yeast Verified 09/14/19 19:26 Infection blood thinners AdvReac Unknown Uncoded 09/14/19 19:26 Physical Exam Vitals: Vital Signs Temp Pulse Pulse Resp BP BP Pulse Ox 09/15/19 02:51 58 L 09/15/19 02:35 97.6 F 58 L 94/56 98 09/15/19 01:29 98 09/14/19 21:00 63 09/14/19 20:01 97.9 F 63 170/84 99 09/14/19 19:15 97.3 F L 62 18 166/78 98 09/14/19 16:57 97.5 F L 80 16 168/81 97 Intake and Output 09/14/19 09/15/19 09/15/19 22:59 06:59 14:59 Intake Total 90 Output Total 250 Balance 90 -250 Intake: Oral 90 Output: Urine 250 Other: Voiding Method Toilet Toilet # Voids 1 Weight 115.666 kg GENERAL: The patient is alert and oriented x3, not in any acute distress. Well developed, well nourished. HEENT: Pupils are round and equally reacting to light. EOMI. No scleral icterus. No conjunctival pallor. Normocephalic, atraumatic. No pharyngeal erythema. No thyromegaly. CARDIOVASCULAR: S1 and S2 present. No murmurs, rubs, or gallops. PULMONARY: Chest is clear to auscultation, no wheezing or crackles. ABDOMEN: Soft, nontender, nondistended, normoactive bowel sounds. No palpable organomegaly. MUSCULOSKELETAL: No joint swelling or deformity. EXTREMITIES: No cyanosis, clubbing, or pedal edema. NEUROLOGICAL: Gross neurological examination did not reveal any focal deficits. SKIN: No rashes. No petechiae Results CBC & Chem 7: 09/14/19 17:48 09/14/19 17:48 Labs: Abnormal Lab Results - Last 24 Hours (Table) 09/14/19 09/14/19 09/14/19 Range/Units 17:48 17:48 17:48 Hct 47.5 H (34.0-46.0) % APTT 21.6 L (22.0-30.0) sec BUN 22 H (7-17) mg/dL Glucose 114 H (74-99) mg/dL Magnesium 2.4 H (1.6-2.3) mg/dL HDL Cholesterol (40-60) mg/dL 09/15/19 Range/Units 02:17 Hct (34.0-46.0) % APTT (22.0-30.0) sec BUN (7-17) mg/dL Glucose (74-99) mg/dL Magnesium (1.6-2.3) mg/dL HDL Cholesterol 88 H (40-60) mg/dL Thrombosis Risk Factor Assmnt - Choose All That Apply Each Factor Represents 1 point: Age 41-60 years, Obesity (BMI >25) Thrombosis Risk Factor Assessment Total Risk Factor Score: 2 Thrombosis Risk Factor Assessment Level: Low Risk Assessment and Plan Assessment: Left shoulder blades pain Hypertension Chronic back pain, she follows up with the [facility], she missed her MRI of the spine and she needs to reschedule COPD/chronic asthma, not active issue History of cervical cancer Plan: This is a pleasant 49 years old female who presents with left shoulder pain suspicious for cardiac causes she underwent serial troponins and EKG, cardiology consult. Continue with aspirin. We'll check echocardiogram Labs and medication were reviewed.. Continue same treatment. Continue with symptomatic treatment. Resume home medication. Monitor lytes and vitals. DVT and GI prophylaxis. Further recommendations of the clinical course of the patient DVT prophylaxis: Subcutaneous heparin GI Prophylaxis: Pepcid
[2019-09-15] MEDS ORDERED: HEPARIN SODIUM,PORCINE 5,000 UNIT/ML 1 ML VIAL SQ SCH (09:00)
[2019-09-15] MEDS ORDERED: ASPIRIN 325 MG TAB PO SCH (09:00)
[2019-09-15] MEDS ORDERED: FAMOTIDINE 20 MG/2 ML VIAL IV SCH (09:00)
[2019-09-15 09:03] VITALS: PULSE 61; RESP 16
--- NOTE | 2019-09-15 10:47 | P.CRDCN ---
History of Present Illness History of present illness: HISTORY OF PRESENTING ILLNESS This is a pleasant 49-year-old female past medical history significant for hypertension, COPD, chronic back pain and former nicotine dependence. She follows in the office with Dr. Samuel. We have been asked to see in consultation for shoulder pain. Patient suffered a trip and fall approximately 4 weeks ago landing falling backwards landing on her left hip. She has a large ecchymosis noted to the area. On Thursday she started having discomfort in her left shoulder. The discomfort was worse when she moved her shoulder. It radiated through to the left scapular region. She continues to have left shoulder discomfort that is relieved by muscle relaxers and ice. She denies chest pain, shortness of breath, dizziness or palpitations. Most recent stress test in the office July 2017 was negative for stress-induced ischemia. At that time she w alked on the treadmill. DIAGNOSTICS EKG reveals sinus mechanism with left axis deviation and nonspecific ST abnormalities. Chest xray negative for an acute cardiopulmonary process. Shoulder x-ray unremarkable. Laboratory reviewed, WBC 8.1, hemoglobin 14.8, platelets 171, d-dimer 0.43, sodium 141, potassium 4.7, creatinine 0.91, magnesium 2.4 cardiac enzymes negative 3, LDL 89 and HDL 88,. Current cardiac medications include aspirin 81 mg daily and Lopressor 12.5 mg twice a day. REVIEW OF SYSTEMS At the time of my exam: CONSTITUTIONAL: Denies fever or chills. CARDIOVASCULAR: Denies chest pain, shortness of breath, orthopnea, PND or palpitations. RESPIRATORY: Denies cough. GASTROINTESTINAL: Denies abdominal pain, diarrhea, constipation, nausea or vomiting. MUSCULOSKELETAL: Denies myalgias. NEUROLOGIC: Denies numbness, tingling or weakness. ENDOCRINE: Denies fatigue, weight change, polydipsia or polyurina. GENITOURINARY: Denies burning, hematuria or urgency with micturation. HEMATOLOGIC: Denies history of anemia or bleeding. PHYSICAL EXAMINATION Blood pressure 142/83 heart rate 61 afebrile and maintaining oxygen saturation on room air. CONSTITUTIONAL: No apparent distress. Left shoulder pain with movement. HEENT: Head is normocephalic. Pupils are equal, round. Sclerae anicteric. Mucous membranes of the mouth are moist. No JVD. No carotid bruit. CHEST EXAMINATION: Lungs are clear to auscultation. No chest wall tenderness is noted on palpation or with deep breathing. HEART EXAMINATION: Regular rate and rhythm. S1, S2 heard. No murmurs, gallops or rub. ABDOMEN: Soft, nontender. Positive bowel sounds. EXTREMITIES: 2+ peripheral pulses, no lower extremity edema and no calf tenderness. NEUROLOGIC EXAMINATION: Patient is awake, alert and oriented x3. ASSESSMENT Left shoulder pain, atypical for angina. An acute coronary event has been ruled out. Pain is reproducible and related to musculoskeletal injury. Hypertension PLAN An acute coronary event has been ruled out. Echocardiogram has been ordered and will be reviewed. Follow-up with Dr. Samuel upon discharge. Thank you kindly for this consultation. Nurse Practitioner note has been reviewed, I agree with a documented findings and plan of care. Patient was seen and examined. Past Medical History Past Medical History: Asthma, Cancer, Chest Pain / Angina, COPD, Hypertension Additional Past Medical History / Comment(s): POST MENOPAUSAL CERVICAL CANCER, blood transfusions, low platelets patient says related to bleeding from cervical cancer, History of Any Multi-Drug Resistant Organisms: None Reported Past Surgical History: Tubal Ligation Additional Past Surgical History / Comment(s): COLONOSCOPY EGD, CC implants, Past Anesthesia/Blood Transfusion Reactions: No Reported Reaction Past Psychological History: Depression Smoking Status: Former smoker Past Alcohol Use History: None Reported Past Drug Use History: None Reported - Past Family History Mother Family Medical History: Coronary Artery Disease (CAD), Hypertension, Vascular Disorder Additional Family Medical History / Comment(s): patient says her mother sees a pulmonary doctor, devops developer, and leg doctor Medications and Allergies Home Medications Medication Instructions Recorded Confirmed Type DULoxetine HCL [Cymbalta] 60 mg PO W/LUNCH 11/23/16 09/14/19 History tiZANidine [Zanaflex] 4 mg PO BID PRN 07/19/17 09/14/19 History Aspirin 81 mg PO DAILY@0700 12/15/18 09/14/19 History Metoprolol Tartrate [Lopressor] 12.5 mg PO BID@0700,1900 12/15/18 09/14/19 History Allergies Allergy/AdvReac Type Severity Reaction Status Date / Time erythromycin base Allergy Rash/Hives Verified 09/14/19 19:26 [Erythromycin Base] Macrolide Antibiotics Allergy Rash/Hives Verified 09/14/19 19:26 sulfamethoxazole Allergy Rash/Hives Verified 09/14/19 19:26 [From Bactrim] trimethoprim [From Bactrim] Allergy Rash/Hives Verified 09/14/19 19:26 adhesive tape AdvReac Peels Skin Verified 09/14/19 19:26 penicillin G AdvReac Yeast Verified 09/14/19 19:26 Infection blood thinners AdvReac Unknown Uncoded 09/14/19 19:26 Physical Exam Vitals: Vital Signs Temp Pulse Pulse Resp BP BP Pulse Ox 09/15/19 02:51 58 L 09/15/19 02:35 97.6 F 58 L 94/56 98 09/15/19 01:29 98 09/14/19 21:00 63 09/14/19 20:01 97.9 F 63 170/84 99 09/14/19 19:15 97.3 F L 62 18 166/78 98 09/14/19 16:57 97.5 F L 80 16 168/81 97 Intake and Output 09/14/19 09/15/19 09/15/19 22:59 06:59 14:59 Intake Total 90 Output Total 250 Balance 90 -250 Intake: Oral 90 Output: Urine 250 Other: Voiding Method Toilet Toilet # Voids 1 Weight 115.666 kg Results 09/14/19 17:48 09/14/19 17:48 Cardiac Enzymes 09/14/19 09/14/19 09/14/19 Range/Units 17:48 17:48 20:50 AST 18 (14-36) U/L Troponin I 0.012 0.015 (0.000-0.034) ng/mL 09/15/19 Range/Units 02:17 AST (14-36) U/L Troponin I <0.012 (0.000-0.034) ng/mL Coagulation 09/14/19 Range/Units 17:48 PT 9.6 (9.0-12.0) sec APTT 21.6 L (22.0-30.0) sec Lipids 09/15/19 Range/Units 02:17 Triglycerides 96 (<150) mg/dL Cholesterol 196 (<200) mg/dL HDL Cholesterol 88 H (40-60) mg/dL CBC 09/14/19 Range/Units 17:48 WBC 8.1 (3.8-10.6) k/uL RBC 5.18 (3.80-5.40) m/uL Hgb 14.8 (11.4-16.0) gm/dL Hct 47.5 H (34.0-46.0) % Plt Count 171 (150-450) k/uL Comprehensive Metabolic Panel 09/14/19 Range/Units 17:48 Sodium 141 (137-145) mmol/L Potassium 4.7 (3.5-5.1) mmol/L Chloride 107 (98-107) mmol/L Carbon Dioxide 27 (22-30) mmol/L BUN 22 H (7-17) mg/dL Creatinine 0.91 (0.52-1.04) mg/dL Glucose 114 H (74-99) mg/dL Calcium 10.0 (8.4-10.2) mg/dL AST 18 (14-36) U/L ALT 19 (4-34) U/L Alkaline Phosphatase 75 (38-126) U/L Total Protein 7.4 (6.3-8.2) g/dL Albumin 4.5 (3.5-5.0) g/dL Current Medications Generic Name Dose Route Start Last Admin Trade Name Freq PRN Reason Stop Dose Admin Aspirin 325 mg 09/15/19 09:00 Aspirin PO DAILY [facility] Duloxetine HCl 60 mg 09/15/19 12:30 Cymbalta PO W/LUNCH [facility] Famotidine 20 mg 09/15/19 09:00 Pepcid IV Q12HR [facility] Heparin Sodium (Porcine) 5,000 unit 09/15/19 09:00 Heparin SQ Q12HR [facility] Metoprolol Tartrate 12.5 mg 09/15/19 07:00 09/14/19 22:30 Lopressor PO 12.5 mg BID@0700,1900 [facility] Administration Nitroglycerin 0.4 mg 09/14/19 18:50 Nitrostat SUBLINGUAL Q5M PRN Chest Pain Tizanidine HCl 4 mg 09/14/19 21:06 09/14/19 23:59 Zanaflex PO 4 mg BID PRN Administration Muscle Spasm Intake and Output 09/14/19 09/15/19 09/15/19 22:59 06:59 14:59 Intake Total 90 Output Total 250 Balance 90 -250 Intake: Oral 90 Output: Urine 250 Other: Voiding Method Toilet Toilet # Voids 1 Weight 115.666 kg 09/14/19 17:48 09/14/19 17:48
--- NOTE | 2019-09-15 11:58 | ECHOF ---
Referral Reason:Rule out heart disease MEASUREMENTS -------- HEIGHT: 154.9 cm WEIGHT: 115.7 kg BP: 94/56 RVIDd: 3.4 cm (< 3.3) IVSd: 1.0 cm (0.6 - 1.1) LVIDd: 4.3 cm (3.9 - 5.3) LVPWd: 1.2 cm (0.6 - 1.1) IVSs: 1.8 cm LVIDs: 2.2 cm LVPWs: 1.4 cm LAESV Index (A-L): 19.41 ml/m Ao Diam: 2.7 cm (2.0 - 3.7) AV Cusp: 1.9 cm (1.5 - 2.6) MV EXCURSION: 16.920 mm (> 18.000) MV EF SLOPE: 99 mm/s (70 - 150) EPSS: 0.6 cm MV E Bayron: 1.12 m/s MV DecT: 268 ms MV A Bayron: 0.46 m/s MV E/A Ratio: 2.40 RAP: 5.00 mmHg RVSP: 25.72 mmHg FINDINGS -------- Resting bradycardia (HR<60bpm). This was a technically adequate study. The left ventricular size is normal. Left ventricular wall thickness is normal. Overall left vent ricular systolic function is low-normal with, an EF between 50 - 55 %. The diastolic filling patter n is normal for the age of the patient 14.37. The right ventricle is normal in size. Normal LA size by volume 22+/-6 ml/m2. The right atrium was not well visualized. Interatrial and interventricular septum intact. There is no evidence of aortic regurgitation. There is no evidence of aortic stenosis. No mitral regurgitation. Mild tricuspid regurgitation present. There is no evidence of pulmonary hypertension. The right v entricular systolic pressure, as measured by Doppler, is 25.72mmHg. There is no pulmonic regurgitation present. The aortic root size is normal. Normal inferior vena cava with normal inspiratory collapse consistent with estimated right atrial pre ssure of 5 mmHg. There is no pericardial effusion. CONCLUSIONS -------- 1. The left ventricular size is normal. 2. Left ventricular wall thickness is normal. 3. Overall left ventricular systolic function is low-normal with, an EF between 50 - 55 %. 4. The diastolic filling pattern is normal for the age of the patient 14.37 5. Mild tricuspid regurgitation present. EKG TECHNICIAN: Rose Quiles RDCS
[2019-09-15] MEDS: METOPROLOL TARTRATE 12.5 MG TAB PO SCH ×2 (12:04→18:29)
[2019-09-15] MEDS ORDERED: DULoxetine HCL 60 MG CAPSULE.DR PO SCH (12:30)
[2019-09-15 14:58] VITALS: TEMP 98
[2019-09-15] MEDS ORDERED: diphenhydrAMINE 50 MG/ML 1 ML VIAL IVP STA (16:24)
--- NOTE | 2019-09-15 16:52 | CT ---
EXAMINATION TYPE: CT angio thor/abd pel aorta DATE OF EXAM: 09/15/2019 COMPARISON: Prior CT August 31, 2013 HISTORY: Inconsistent blood pressures and chest/back pain. History of cervical cancer. CT DLP: 2954.3 mGycm. Automated Exposure Control for Dose Reduction was Utilized. CONTRAST: CTA scan of the thorax, abdomen and pelvis is performed without oral and without and with IV Contrast , patient injected with 100ml mL of Isovue 370. Dissection protocol with 3-D reconstructed images cre ated on an independent workstation and reviewed. FINDINGS: VASCULAR: Successful filling of the central pulmonary arteries. No aneurysm in the thoracic aorta. No rmal 3 vessel origin from aortic arch. Patent celiac artery, SMA, with accessory right renal artery c oronal image 27 series 11 and 8 single left renal artery. Patent TELLY. Patent bilateral common iliac with internal/external iliac arteries extending into common femoral arteries with patent superficial and deep femoral arteries. No significant focal stenosis or aneurysmal change. No linear hypodensity to suggest dissection. LUNGS: The lungs are grossly clear, there is no concerning parenchymal mass or nodule identified. T here is no pleural effusion or pneumothorax seen. The tracheobronchial tree is patent. MEDIASTINUM: There are no greater than 1 cm hilar or mediastinal lymph nodes. No pericardial effusi on is seen. OTHER: No additional significant abnormality is seen. LIVER/GB: No significant abnormality is appreciated. PANCREAS: No significant abnormality is seen. SPLEEN: No significant abnormality is seen. ADRENALS: No significant abnormality is seen. KIDNEYS: No significant abnormality is seen. BOWEL: Incidental normal-appearing appendix from cecum. GENITAL ORGANS: Anteverted uterus. Phleboliths or surgical clips in the pelvic cul-de-sac. LYMPH NODES: No greater than 1cm abdominal or pelvic lymph nodes are appreciated. OSSEOUS STRUCTURES: Facet arthropathy lower lumbar spine. Slight scoliotic curvature in the thoracic spine. OTHER: Focal skin thickening and mild fat stranding lateral left abdominal wall at level of upper pel vis axial image 86 with small focus of subcutaneous air. Suspect probable site of subcutaneous medici ne injection. Correlate clinically. Otherwise focal soft tissue infection or cellulitis needs to be c onsidered. IMPRESSION: No aortic aneurysm or dissection. No significant focal arterial stenosis.
[2019-09-15 17:01] VITALS: BP 140/74
[2019-09-15] MEDS: tiZANidine 4 MG TAB PO PRN (17:02)
[2019-09-15] MEDS ORDERED: FAMOTIDINE 20 MG TAB PO SCH (21:00)
== END 2019-09-15 20:30 | disposition home or self-care (01) ==
LOC: EC 16:55 → 3NCARDOBS 18:54
PROVIDERS: ADMIT Internal Medicine; ATTEND Internal Medicine
DX: M25.512 Pain in left shoulder (principal); Z03.818 Encounter for observation for suspected exposure to other biological agents ruled out; Z78.0 Asymptomatic menopausal state; Z85.41 Personal history of malignant neoplasm of cervix uteri; Z98.51 Tubal ligation status; Z98.890 Other specified postprocedural states; F32.9 Major depressive disorder, single episode, unspecified; Z82.49 Family history of ischemic heart disease and other diseases of the circulatory system; Z87.891 Personal history of nicotine dependence; G89.29 Other chronic pain; M54.9 Dorsalgia, unspecified; I10 Essential (primary) hypertension; J44.9 Chronic obstructive pulmonary disease, unspecified; E66.9 Obesity, unspecified; Z68.42 Body mass index [BMI] 45.0-49.9, adult; Z79.82 Long term (current) use of aspirin; Z79.899 Other long term (current) drug therapy; Z88.1 Allergy status to other antibiotic agents; Z88.0 Allergy status to penicillin; Z88.2 Allergy status to sulfonamides; Z88.8 Allergy status to other drugs, medicaments and biological substances; Z91.09 Other allergy status, other than to drugs and biological substances
CPT/HCPCS: 93005 ×2; 96372; 96374; 96375; 99285; 36415; 93306; 85379; 80061; 80053; 83735; 84484 ×2; 85025; 85610; 85730; 73030; 71046; 71275; 74174; G0378 ×2; U0003; J1200; J1644; Q9967

== ENCOUNTER 2020-11-27 04:58 | Emergency (ER) | payer OTHER ==
[2020-11-27 05:20] VITALS: BP 141/91; PULSE 70; RESP 18; TEMP 97.7
--- NOTE | 2020-11-27 06:56 | ED ---
URI HPI - General Chief Complaint: Upper Respiratory Infection Stated Complaint: Sore throat,SOB Time Seen by Provider: 11/27/20 05:42 Source: patient Mode of arrival: ambulatory Limitations: no limitations - History of Present Illness MD Complaint: cough, sore throat -: hour(s) Severity: mild Quality: burning Consistency: constant Context: sick contacts Associated Symptoms: denies other symptoms - Related Data Home Medications Medication Instructions Recorded Confirmed DULoxetine HCL [Cymbalta] 60 mg PO W/LUNCH 11/23/16 09/14/19 tiZANidine [Zanaflex] 4 mg PO BID PRN 07/19/17 09/14/19 Aspirin 81 mg PO DAILY@0700 12/15/18 09/14/19 Metoprolol Tartrate [Lopressor] 12.5 mg PO BID@0700,1900 12/15/18 09/14/19 Allergies Allergy/AdvReac Type Severity Reaction Status Date / Time erythromycin base Allergy Rash/Hives Verified 11/27/20 05:20 [Erythromycin Base] Macrolide Antibiotics Allergy Rash/Hives Verified 11/27/20 05:20 sulfamethoxazole Allergy Rash/Hives Verified 11/27/20 05:20 [From Bactrim] trimethoprim [From Bactrim] Allergy Rash/Hives Verified 11/27/20 05:20 adhesive tape AdvReac Peels Skin Verified 11/27/20 05:20 penicillin G AdvReac Yeast Verified 11/27/20 05:20 Infection blood thinners AdvReac Unknown Uncoded 11/27/20 05:20 Review of Systems ROS Statement: Those systems with pertinent positive or pertinent negative responses have been documented in the HPI. ROS Other: All systems not noted in ROS Statement are negative. Constitutional: Denies: fever, chills ENT: Reports: throat pain, congestion Respiratory: Reports: cough. Denies: dyspnea, hemoptysis Cardiovascular: Denies: chest pain Gastrointestinal: Denies: abdominal pain, vomiting, diarrhea Skin: Denies: rash Neurological: Denies: headache, weakness Past Medical History Past Medical History: Asthma, Cancer, Chest Pain / Angina, COPD, Hypertension Additional Past Medical History / Comment(s): POST MENOPAUSAL CERVICAL CANCER, blood transfusions, low platelets patient says related to bleeding from cervical cancer, History of Any Multi-Drug Resistant Organisms: None Reported Past Surgical History: Tubal Ligation Additional Past Surgical History / Comment(s): COLONOSCOPY EGD, CC implants, Past Anesthesia/Blood Transfusion Reactions: No Reported Reaction Past Psychological History: Depression Smoking Status: Former smoker Past Alcohol Use History: None Reported Past Drug Use History: None Reported - Past Family History Mother Family Medical History: Coronary Artery Disease (CAD), Hypertension, Vascular Disorder Additional Family Medical History / Comment(s): patient says her mother sees a pulmonary doctor, freight traffic consultant, and leg doctor General Exam Limitations: no limitations General appearance: alert, in no apparent distress Head exam: Present: atraumatic, normocephalic Eye exam: Present: normal appearance. Absent: scleral icterus, conjunctival injection ENT exam: Present: mucous membranes moist, other (Mild injection of pharynx. No exudate) Neck exam: Present: normal inspection, full ROM, lymphadenopathy. Absent: tenderness, meningismus Respiratory exam: Present: normal lung sounds bilaterally. Absent: respiratory distress, wheezes, rales, rhonchi, stridor Neurological exam: Present: alert Skin exam: Present: warm, dry, intact, normal color. Absent: rash Course Vital Signs 11/27/20 05:18 Temperature 97.7 F Pulse Rate 70 Respiratory 18 Rate Blood Pressure 141/91 O2 Sat by Pulse 97 Oximetry Medical Decision Making - Lab Data Lab Results 11/27/20 Range/Units 05:44 Group A Strep Rapid Negative (Negative) Disposition Clinical Impression: Pharyngitis Disposition: HOME SELF-CARE Condition: Good Instructions (If sedation given, give patient instructions): Pharyngitis (ED) Is patient prescribed a controlled substance at d/c from ED?: No Referrals: Lima Oakes MD [Primary Care Provider] - 1-2 days
== END 2020-11-27 07:08 | disposition home or self-care (01) ==
LOC: EC 04:58
DX: J02.9 Acute pharyngitis, unspecified (principal); R06.02 Shortness of breath; I10 Essential (primary) hypertension; J44.9 Chronic obstructive pulmonary disease, unspecified; F32.9 Major depressive disorder, single episode, unspecified; Z87.891 Personal history of nicotine dependence; Z79.82 Long term (current) use of aspirin
CPT/HCPCS: 87081; 87430; 99284

== ENCOUNTER 2020-12-21 07:23 | Emergency (ER) | payer OTHER ==
[2020-12-21 07:39] VITALS: TEMP 99.8
[2020-12-21] MEDS ORDERED: ACETAMINOPHEN TAB 500 MG TAB PO STA (07:42)
--- NOTE | 2020-12-21 07:49 | ED ---
General Adult HPI - General Chief complaint: Upper Respiratory Infection Stated complaint: sore throat, congestion Time Seen by Provider: 12/21/20 07:25 Source: patient, RN notes reviewed, old records reviewed Mode of arrival: ambulatory Limitations: no limitations - History of Present Illness Initial comments: This is a 50-year-old female presents emergency Department complaining that for the last 2 days she's had a cough congestion sore throat. Patient states because of congestion she has a little bit difficult time breathing through her nose which breathe fine for mouth. Patient denies chest pain or palpitations. Patient denies abdominal pain patient's nausea vomiting diarrhea. Patient denies any fever. Patient denies any rashes. Patient denies any other symptoms at this time. Patient states she did not get the COVID vaccine. - Related Data Home Medications Medication Instructions Recorded Confirmed DULoxetine HCL [Cymbalta] 60 mg PO HS 11/23/16 12/21/20 Metoprolol Tartrate [Lopressor] 12.5 mg PO BID 12/15/18 12/21/20 Betamethasone Dipropionate 1 applic TOPICAL BID 12/21/20 12/21/20 [Betamethasone Dipropionate 0.05%] Cetirizine HCl 10 mg PO DAILY 12/21/20 12/21/20 Clindamycin Phosphate 1% Pledget 1 applic TOPICAL BID 12/21/20 12/21/20 Famotidine [Pepcid] 20 mg PO BID 12/21/20 12/21/20 Pregabalin [Lyrica] 150 mg PO TID 12/21/20 12/21/20 Triamcinolone 0.1% Cream [Kenalog 1 applic TOPICAL BID PRN 12/21/20 12/21/20 0.1% Cream] metroNIDAZOLE 0.75% CREAM 1 applic TOPICAL BID 12/21/20 12/21/20 [Metrocream] tiZANidine [Zanaflex] 4 mg PO BID PRN 12/21/20 12/21/20 Allergies Allergy/AdvReac Type Severity Reaction Status Date / Time erythromycin base Allergy Rash/Hives Verified 12/21/20 09:02 [Erythromycin Base] Macrolide Antibiotics Allergy Rash/Hives Verified 12/21/20 09:02 sulfamethoxazole Allergy Rash/Hives Verified 12/21/20 09:02 [From Bactrim] trimethoprim [From Bactrim] Allergy Rash/Hives Verified 12/21/20 09:02 adhesive tape AdvReac Peels Skin Verified 12/21/20 09:02 penicillin G AdvReac Yeast Verified 12/21/20 09:02 Infection blood thinners AdvReac Unknown Uncoded 12/21/20 09:02 Review of Systems ROS Statement: Those systems with pertinent positive or pertinent negative responses have been documented in the HPI. ROS Other: All systems not noted in ROS Statement are negative. Past Medical History Past Medical History: Asthma, Cancer, Chest Pain / Angina, COPD, Hypertension Additional Past Medical History / Comment(s): POST MENOPAUSAL CERVICAL CANCER, blood transfusions, low platelets patient says related to bleeding from cervical cancer, History of Any Multi-Drug Resistant Organisms: None Reported Past Surgical History: Tubal Ligation Additional Past Surgical History / Comment(s): COLONOSCOPY EGD, CC implants, Past Anesthesia/Blood Transfusion Reactions: No Reported Reaction Past Psychological History: Depression Smoking Status: Former smoker Past Alcohol Use History: None Reported Past Drug Use History: None Reported - Past Family History Mother Family Medical History: Coronary Artery Disease (CAD), Hypertension, Vascular Disorder Additional Family Medical History / Comment(s): patient says her mother sees a pulmonary doctor, job press operator, and leg doctor General Exam - General Exam Comments Initial Comments: GENERAL: Patient is well-developed and well-nourished. Patient is nontoxic and well- hydrated and is in no acute distress. ENT: Neck is soft and supple. No significant lymphadenopathy is noted. Oropharynx is clear. Moist mucous membranes. Neck has full range of motion without eliciting any pain. EYES: The sclera were anicteric and conjunctiva were pink and moist. Extraocular movements were intact and pupils were equal round and reactive to light. Eyelids were unremarkable. PULMONARY: Unlabored respirations. Good breath sounds bilaterally. No audible rales rhonchi or wheezing was noted. CARDIOVASCULAR: There is a regular rate and rhythm without any murmurs gallops or rubs. ABDOMEN: Soft and nontender with normal bowel sounds. SKIN: Skin is clear with no lesions or rashes and otherwise unremarkable. NEUROLOGIC: Patient is alert and oriented x3. Cranial nerves II through XII are grossly intact. Motor and sensory are also intact. Normal speech, volume and content. Symmetrical smile. MUSCULOSKELETAL: Normal extremities with adequate strength and full range of motion. No lower extremity swelling or edema. No calf tenderness. LYMPHATICS: No significant lymphadenopathy is noted PSYCHIATRIC: Normal psychiatric evaluation. Limitations: no limitations Course Vital Signs 12/21/20 12/21/20 12/21/20 07:25 07:52 08:20 Temperature 99.8 F H 99.8 F H Pulse Rate 132 H 108 H Respiratory 18 18 22 Rate Blood Pressure 171/92 152/82 O2 Sat by Pulse 93 L 95 Oximetry 12/21/20 09:28 Temperature Pulse Rate 86 Respiratory 18 Rate Blood Pressure 135/69 O2 Sat by Pulse 96 Oximetry Medical Decision Making - Medical Decision Making Chest x-ray shows no acute abnormality. Patient was oxygenating 95% on room air and in no respiratory distress. - Lab Data Lab Results 12/21/20 12/21/20 Range/Units 07:55 07:55 Influenza Type A RNA Not Detected (Not Detectd) Influenza Type B (PCR) Not Detected (Not Detectd) SARS-CoV-2 (PCR) Not Detected (Not Detectd) Group A Strep Rapid Negative (Negative) Disposition Clinical Impression: Upper respiratory tract infection Disposition: HOME SELF-CARE Instructions (If sedation given, give patient instructions): Upper Respiratory Infection (ED) Is patient prescribed a controlled substance at d/c from ED?: No Referrals: Lima Oaeks MD [Primary Care Provider] - 1-2 days Time of Disposition: 10:34
--- NOTE | 2020-12-21 08:17 | XR ---
EXAMINATION TYPE: XR chest 2V DATE OF EXAM: 12/21/2020 COMPARISON: 09/14/2019 HISTORY: 50-year-old female shortness of breath, cough, difficulty breathing TECHNIQUE: AP and lateral views FINDINGS: Portable exam further limited by large body habitus. Heart appears borderline enlarged. Hazy mid and lower lung densities likely related to overlying soft tissue. No demian consolidation or pleural effus ion is seen. IMPRESSION: Borderline cardiomegaly. Limited by large patient body habitus. Hazy densities likely relate to overl supriya soft tissue. No definite acute process.
[2020-12-21 10:07] VITALS: BP 135/69; PULSE 86; RESP 18
== END 2020-12-21 10:49 | disposition home or self-care (01) ==
LOC: EC 07:23
DX: J06.9 Acute upper respiratory infection, unspecified (principal); I10 Essential (primary) hypertension; J45.909 Unspecified asthma, uncomplicated; F32.9 Major depressive disorder, single episode, unspecified; Z20.822 Contact with and (suspected) exposure to COVID-19; Z88.0 Allergy status to penicillin; Z88.1 Allergy status to other antibiotic agents; Z88.2 Allergy status to sulfonamides; Z98.51 Tubal ligation status; Z87.891 Personal history of nicotine dependence
CPT/HCPCS: 71046; 87081; 87430; 87502; 87635; 99285